=== PATIENT | female | born 1950 | race American Indian/Alaskan Native ===

== ENCOUNTER 2017-09-25 10:06 | Outpatient (CLI) | payer MEDICARE ==
--- NOTE | 2017-09-25 13:19 | Fluoroscopy Report ---
MODIFIED BARIUM SWALLOW INDICATION: Food in esophagus causing compression of trachea. COMPARISON: None similar. FINDINGS: Fluoroscopy with video provided by radiologist for speech therapist to assess the swallowing mechanism. Food items of various consistencies given. IMPRESSION: Successful modified barium swallow. Please refer to detailed report from speech pathologist. Thank you for the opportunity to participate in this patient's care.
== END 2017-09-25 10:07 | disposition home or self-care (01) ==
LOC: FLUORO 10:06
PROVIDERS: ATTEND Internal Medicine
DX: T18.120A Food in esophagus causing compression of trachea, initial encounter (principal); X58.XXXA Exposure to other specified factors, initial encounter; Y93.89 Activity, other specified; Y92.89 Other specified places as the place of occurrence of the external cause; Y99.8 Other external cause status
CPT/HCPCS: 74230

== ENCOUNTER 2017-09-25 11:28 | Outpatient (CLI) | payer MEDICARE | END 2017-09-25 11:29 | disposition home or self-care (01) | LOC: PT 11:28 | PROVIDERS: ATTEND Internal Medicine | DX: R13.12 Dysphagia, oropharyngeal phase (principal); T18.120A Food in esophagus causing compression of trachea, initial encounter; E11.9 Type 2 diabetes mellitus without complications; I10 Essential (primary) hypertension; F41.9 Anxiety disorder, unspecified; X58.XXXA Exposure to other specified factors, initial encounter; Y93.89 Activity, other specified; Y92.89 Other specified places as the place of occurrence of the external cause; Y99.8 Other external cause status | CPT/HCPCS: 92611; G8996; G8997; G8998 ==

== ENCOUNTER 2017-10-03 20:31 | Inpatient (IN) | payer MEDICAID, MEDICARE ==
[2017-10-03 21:23] LABS: Basophils # (Auto) 0.1 K/mm3 (0.0-0.1); Basophils % (Auto) 0.8 % (0.0-1.8); Eosinophils # (Auto) 0.2 K/mm3 (0.0-0.4); Eosinophils % (Auto) 1.9 % (0.0-4.3); Hematocrit 37.3 % (30.3-42.9); Hemoglobin 12.1 gm/dl (10.1-14.3); Lymphocytes # (Auto) 3.6 K/mm3 (1.2-5.4); Lymphocytes % (Auto) 44.8 % (13.4-35.0); Mean Corpuscular HGB Conc 33 % (30-34); Mean Corpuscular Hemoglobin 30 pg (28-32); Mean Corpuscular Volume 92 fl (79-97); Monocytes # (Auto) 0.4 K/mm3 (0.0-0.8); Monocytes % (Auto) 5.3 % (0.0-7.3); Platelet Count 133 K/mm3 (140-440); Red Blood Count 4.05 M/mm3 (3.65-5.03)
[2017-10-03 21:33] LABS: INR 1.02 (0.87-1.13)
[2017-10-03 21:34] LABS: Partial Thromboplastin Time 27.3 Sec. (24.2-36.6)
[2017-10-03 21:35] LABS: Bacteria,Urine 4+ /HPF (Negative); Bilirubin,Urine NEG (Negative); Blood,Urine NEG (Negative); Color,Urine Amber (Yellow); Mucus,Urine 3+ /HPF; Nitrite,Urine NEG (Negative); Protein,Urine >500 mg/dL (Negative); Urobilinogen,Urine < 2.0 mg/dL (<2.0)
[2017-10-03] MEDS ORDERED: MAGNESIUM SULFATE 2GM/50ML 2 GM/50 ML BAG IV ONE (21:37)
[2017-10-03] MEDS ORDERED: LEVAQUIN 750MG/150ML 750 MG/150 ML BAG IV ONE (21:38)
[2017-10-03 21:44] LABS: Amphetamine Screen,Urine PRESUMPTIVE NEGATIVE; Cannabinoid Screen,Urine PRESUMPTIVE NEGATIVE; Cocaine Screen,Urine PRESUMPTIVE NEGATIVE; Methadone Screen,Urine PRESUMPTIVE NEGATIVE; Opiate Screen,Urine PRESUMPTIVE NEGATIVE
[2017-10-03 21:47] LABS: Albumin 3.5 g/dL (3.9-5); Calcium 9.7 mg/dL (8.4-10.2); Creatine Kinase MB < 1.0 ng/mL (0.0-4.0)
--- NOTE | 2017-10-03 21:47 | Emergency Department Report ---
ED Altered Mental Status HPI - General Chief Complaint: Altered Mental Status Stated Complaint: AMS Time Seen by Provider: 10/03/17 20:36 Source: family, EMS, old records reviewed Mode of arrival: Stretcher Limitations: Altered Mental Status, Physical Limitation - History of Present Illness Initial Comments: 67 year old female with a past medical history of previous CVA with residual right-sided deficits, bed bound, chronic dysphagia and chronic dysarthria secondary to CVA, A. fib, dementia, CHF, diabetes, hypertension, chronic renal insufficiency, and Parkinson's disease presents to the hospital with alteration in mental status as started about 2:30 PM today. Patient's daughter is at the bedside. She states that she was at work all day and her sons reported decrease activity and decreased speaking. At 5 PM patient would not eat when fed by her sons. When daughter arrived home at 6 PM continued alteration in mental status and brought patient to the hospital. In the ED patient is able to communicate her name but doesn't converse as fluently as normal. Patient is able to follow commands and does not report pain. Frequent coughing, vomiting, and drooling noted at the bedside. - Related Data Home Medications Medication Instructions Recorded Confirmed Last Taken Carbidopa/Levodopa 10-100 [Sinemet 1 each PO BID 05/06/13 08/30/17 01/25/15 10/100] Famotidine [Pepcid] 20 mg PO BID 05/06/13 08/30/17 01/25/15 Previous Rx's Medication Instructions Recorded Last Taken Type Aspirin [Aspirin BABY CHEW TAB] 81 mg PO QDAY tab.chew 01/29/15 Unknown Rx Donepezil [Aricept] 5 mg PO QDAY tablet 01/29/15 Unknown Rx ALPRAZolam [ALPRAZolam Odt] 0.5 mg PO BID PRN #60 tab.rapdis 09/06/17 Unknown Rx AtorvaSTATin [Lipitor] 80 mg PO QHS tablet 09/06/17 Unknown Rx Calcitriol [Rocaltrol] 0.25 mcg PO QDAY capsule 09/06/17 Unknown Rx Carvedilol [Coreg] 6.25 mg PO BID tablet 09/06/17 Unknown Rx Gabapentin [Neurontin] 100 mg PO TID #90 capsule 09/06/17 Unknown Rx Insulin Detemir [Levemir] 28 units SUB-Q QHS units 09/06/17 Unknown Rx Losartan [Cozaar] 25 mg PO QDAY tablet 09/06/17 Unknown Rx Sodium Bicarbonate 650 mg PO BID tablet 09/06/17 Unknown Rx hydrALAZINE [Apresoline TAB] 100 mg PO TID tab 09/06/17 Unknown Rx traZODone [Desyrel] 50 mg PO QHS #30 tablet 09/06/17 Unknown Rx Allopurinol [Zyloprim] 100 mg PO QDAY #30 tablet 09/07/17 Unknown Rx Allergies Allergy/AdvReac Type Severity Reaction Status Date / Time Penicillins Allergy Unknown Verified 05/06/13 00:01 ED Review of Systems ROS: Stated complaint: AMS Other details as noted in HPI Comment: Unobtainable due to pts medical conditions ED Past Medical Hx - Past Medical History Previous Medical History?: Yes Hx Hypertension: Yes Hx CVA: Yes Hx Congestive Heart Failure: Yes Hx Diabetes: Yes Hx Renal Disease: Yes Hx Psychiatric Treatment: Yes (dementia) Hx Dementia: Yes Additional medical history: parkinson's - Surgical History Past Surgical History?: Yes Additional Surgical History: bypass heart surg back surg - Social History Smoking Status: Never Smoker Substance Use Type: None, Prescribed - Medications Home Medications: Home Medications Medication Instructions Recorded Confirmed Last Taken Type Carbidopa/Levodopa 10-100 [Sinemet 1 each PO BID 05/06/13 08/30/17 01/25/15 History 10] Famotidine [Pepcid] 20 mg PO BID 05/06/13 08/30/17 01/25/15 History Aspirin [Aspirin BABY CHEW TAB] 81 mg PO QDAY tab.chew 01/29/15 08/30/17 Unknown Rx Donepezil [Aricept] 5 mg PO QDAY tablet 01/29/15 08/30/17 Unknown Rx ALPRAZolam [ALPRAZolam Odt] 0.5 mg PO BID PRN #60 tab.rapdis 09/06/17 Unknown Rx AtorvaSTATin [Lipitor] 80 mg PO QHS tablet 09/06/17 Unknown Rx Calcitriol [Rocaltrol] 0.25 mcg PO QDAY capsule 09/06/17 Unknown Rx Carvedilol [Coreg] 6.25 mg PO BID tablet 09/06/17 Unknown Rx Gabapentin [Neurontin] 100 mg PO TID #90 capsule 09/06/17 Unknown Rx Insulin Detemir [Levemir] 28 units SUB-Q QHS units 09/06/17 Unknown Rx Losartan [Cozaar] 25 mg PO QDAY tablet 09/06/17 Unknown Rx Sodium Bicarbonate 650 mg PO BID tablet 09/06/17 Unknown Rx hydrALAZINE [Apresoline TAB] 100 mg PO TID tab 09/06/17 Unknown Rx traZODone [Desyrel] 50 mg PO QHS #30 tablet 09/06/17 Unknown Rx Allopurinol [Zyloprim] 100 mg PO QDAY #30 tablet 09/07/17 Unknown Rx ED Physical Exam - General Limitations: Altered Mental Status, Physical Limitation - Other Other exam information: General: Limited by depressed mental status Head exam: Atraumatic, normocephalic Eyes exam: Right eye appears 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 (chronic as per patient' s daughter) left eyes extraocular movements intact ENT: Moist mucous membrane Neck exam: Normal inspection Respiratory exam: Clear to auscultation bilateral, no wheezes, rales, crackles Cardiovascular: Normal rate and rhythm Abdomen: Soft, nondistended, and nontender, with normal bowel sounds, no rebound, or guarding Extremity: Normal inspection Back: Normal Inspection Neurologic: Alert to voice, follows commands, no facial droop, 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, left arm strength 4/5, right arm strength 3/5, bilateral week for dorsiflexion equal and unable to lift either leg against gravity Psychiatric: normal affect, normal mood Skin: Warm, dry, intact ED Course Vital Signs 10/03/17 10/03/17 10/03/17 20:38 20:48 21:22 Temperature 99.1 F 99.1 F Pulse Rate 77 77 80 Respiratory 18 18 23 Rate Blood Pressure 156/84 Blood Pressure 156/84 [Left] O2 Sat by Pulse 96 96 96 Oximetry 10/03/17 21:26 Temperature Pulse Rate Respiratory 20 Rate Blood Pressure Blood Pressure [Left] O2 Sat by Pulse 96 Oximetry - Lab Data Result diagrams: 10/03/17 Unknown 10/03/17 Unknown Lab Results 10/03/17 10/03/17 10/03/17 Range/Units 21:22 21:22 Unknown WBC (4.5-11.0) K/mm3 RBC (3.65-5.03) M/mm3 Hgb (10.1-14.3) gm/dl Hct (30.3-42.9) % MCV (79-97) fl MCH (28-32) pg MCHC (30-34) % RDW (13.2-15.2) % Plt Count (140-440) K/mm3 Lymph % (Auto) (13.4-35.0) % Mcculloch % (Auto) (0.0-7.3) % Eos % (Auto) (0.0-4.3) % Baso % (Auto) (0.0-1.8) % Lymph # (1.2-5.4) K/mm3 Mcculloch # (0.0-0.8) K/mm3 Eos # (0.0-0.4) K/mm3 Baso # (0.0-0.1) K/mm3 Seg Neutrophils % (40.0-70.0) % Seg Neutrophils # (1.8-7.7) K/mm3 PT (12.2-14.9) Sec. INR (0.87-1.13) APTT (24.2-36.6) Sec. Sodium (137-145) mmol/L Potassium (3.6-5.0) mmol/L Chloride (98-107) mmol/L Carbon Dioxide (22-30) mmol/L Anion Gap mmol/L BUN (7-17) mg/dL Creatinine (0.7-1.2) mg/dL Estimated GFR ml/min BUN/Creatinine Ratio % Glucose (65-100) mg/dL Calcium (8.4-10.2) mg/dL Magnesium (1.7-2.3) mg/dL Total Bilirubin (0.1-1.2) mg/dL AST (5-40) units/L ALT (7-56) units/L Alkaline Phosphatase (35-129) units/L Total Creatine Kinase (30-135) units/L CK-MB (CK-2) (0.0-4.0) ng/mL CK-MB (CK-2) Rel Index (0-4) Troponin T (0.00-0.029) ng/mL Total Protein (6.3-8.2) g/dL Albumin (3.9-5) g/dL Albumin/Globulin Ratio % Urine Color Prachi (Yellow) Urine Turbidity Clear (Clear) Urine pH 5.0 (5.0-7.0) Ur Specific Petros 1.016 (1.003-1.030) Urine Protein >500 (Negative) mg/dL Urine Glucose (UA) 150 (Negative) mg/dL Urine Ketones Neg (Negative) mg/dL Urine Blood Neg (Negative) Urine Nitrite Neg (Negative) Urine Bilirubin Neg (Negative) Urine Urobilinogen < 2.0 (<2.0) mg/dL Ur Leukocyte Esterase Mod (Negative) Urine WBC (Auto) 65.0 H (0.0-6.0) /HPF Urine RBC (Auto) 40.0 (0.0-6.0) /HPF U Epithel Cells (Auto) 11.0 (0-13.0) /HPF Urine Bacteria (Auto) 4+ (Negative) /HPF Urine Mucus 3+ /HPF Urine Opiates Screen Presumptive negative Urine Methadone Screen Presumptive negative Ur Barbiturates Screen Presumptive negative Ur Phencyclidine Scrn Presumptive negative Ur Amphetamines Screen Presumptive negative U Benzodiazepines Scrn Presumptive positive Urine Cocaine Screen Presumptive negative U Marijuana (THC) Screen Presumptive negative Drugs of Abuse Note Disclamer Plasma/Serum Alcohol < 0.01 (0-0.07) % 10/03/17 10/03/17 10/03/17 Range/Units Unknown Unknown Unknown WBC 8.1 (4.5-11.0) K/mm3 RBC 4.05 (3.65-5.03) M/mm3 Hgb 12.1 (10.1-14.3) gm/dl Hct 37.3 (30.3-42.9) % MCV 92 (79-97) fl MCH 30 (28-32) pg MCHC 33 (30-34) % RDW 15.0 (13.2-15.2) % Plt Count 133 L (140-440) K/mm3 Lymph % (Auto) 44.8 H (13.4-35.0) % Mcculloch % (Auto) 5.3 (0.0-7.3) % Eos % (Auto) 1.9 (0.0-4.3) % Baso % (Auto) 0.8 (0.0-1.8) % Lymph # 3.6 (1.2-5.4) K/mm3 Mcculloch # 0.4 (0.0-0.8) K/mm3 Eos # 0.2 (0.0-0.4) K/mm3 Baso # 0.1 (0.0-0.1) K/mm3 Seg Neutrophils % 47.2 (40.0-70.0) % Seg Neutrophils # 3.8 (1.8-7.7) K/mm3 PT 13.9 (12.2-14.9) Sec. INR 1.02 (0.87-1.13) APTT 27.3 (24.2-36.6) Sec. Sodium 141 (137-145) mmol/L Potassium 3.9 (3.6-5.0) mmol/L Chloride 105.9 (98-107) mmol/L Carbon Dioxide 20 L (22-30) mmol/L Anion Gap 19 mmol/L BUN 21 H (7-17) mg/dL Creatinine 1.7 H (0.7-1.2) mg/dL Estimated GFR 36 ml/min BUN/Creatinine Ratio 12 % Glucose 286 H (65-100) mg/dL Calcium 9.7 (8.4-10.2) mg/dL Magnesium (1.7-2.3) mg/dL Total Bilirubin 0.50 (0.1-1.2) mg/dL AST 28 (5-40) units/L ALT 18 (7-56) units/L Alkaline Phosphatase 250 H (35-129) units/L Total Creatine Kinase (30-135) units/L CK-MB (CK-2) (0.0-4.0) ng/mL CK-MB (CK-2) Rel Index (0-4) Troponin T (0.00-0.029) ng/mL Total Protein 7.3 (6.3-8.2) g/dL Albumin 3.5 L (3.9-5) g/dL Albumin/Globulin Ratio 0.9 % Urine Color (Yellow) Urine Turbidity (Clear) Urine pH (5.0-7.0) Ur Specific Petros (1.003-1.030) Urine Protein (Negative) mg/dL Urine Glucose (UA) (Negative) mg/dL Urine Ketones (Negative) mg/dL Urine Blood (Negative) Urine Nitrite (Negative) Urine Bilirubin (Negative) Urine Urobilinogen (<2.0) mg/dL Ur Leukocyte Esterase (Negative) Urine WBC (Auto) (0.0-6.0) /HPF Urine RBC (Auto) (0.0-6.0) /HPF U Epithel Cells (Auto) (0-13.0) /HPF Urine Bacteria (Auto) (Negative) /HPF Urine Mucus /HPF Urine Opiates Screen Urine Methadone Screen Ur Barbiturates Screen Ur Phencyclidine Scrn Ur Amphetamines Screen U Benzodiazepines Scrn Urine Cocaine Screen U Marijuana (THC) Screen Drugs of Abuse Note Plasma/Serum Alcohol (0-0.07) % 10/03/17 10/03/17 Range/Units Unknown Unknown WBC (4.5-11.0) K/mm3 RBC (3.65-5.03) M/mm3 Hgb (10.1-14.3) gm/dl Hct (30.3-42.9) % MCV (79-97) fl MCH (28-32) pg MCHC (30-34) % RDW (13.2-15.2) % Plt Count (140-440) K/mm3 Lymph % (Auto) (13.4-35.0) % Mcculloch % (Auto) (0.0-7.3) % Eos % (Auto) (0.0-4.3) % Baso % (Auto) (0.0-1.8) % Lymph # (1.2-5.4) K/mm3 Mcculloch # (0.0-0.8) K/mm3 Eos # (0.0-0.4) K/mm3 Baso # (0.0-0.1) K/mm3 Seg Neutrophils % (40.0-70.0) % Seg Neutrophils # (1.8-7.7) K/mm3 PT (12.2-14.9) Sec. INR (0.87-1.13) APTT (24.2-36.6) Sec. Sodium (137-145) mmol/L Potassium (3.6-5.0) mmol/L Chloride (98-107) mmol/L Carbon Dioxide (22-30) mmol/L Anion Gap mmol/L BUN (7-17) mg/dL Creatinine (0.7-1.2) mg/dL Estimated GFR ml/min BUN/Creatinine Ratio % Glucose (65-100) mg/dL Calcium (8.4-10.2) mg/dL Magnesium 1.40 L (1.7-2.3) mg/dL Total Bilirubin (0.1-1.2) mg/dL AST (5-40) units/L ALT (7-56) units/L Alkaline Phosphatase (35-129) units/L Total Creatine Kinase 68 (30-135) units/L CK-MB (CK-2) < 1.0 (0.0-4.0) ng/mL CK-MB (CK-2) Rel Index 1.4 (0-4) Troponin T 0.021 (0.00-0.029) ng/mL Total Protein (6.3-8.2) g/dL Albumin (3.9-5) g/dL Albumin/Globulin Ratio % Urine Color (Yellow) Urine Turbidity (Clear) Urine pH (5.0-7.0) Ur Specific Petros (1.003-1.030) Urine Protein (Negative) mg/dL Urine Glucose (UA) (Negative) mg/dL Urine Ketones (Negative) mg/dL Urine Blood (Negative) Urine Nitrite (Negative) Urine Bilirubin (Negative) Urine Urobilinogen (<2.0) mg/dL Ur Leukocyte Esterase (Negative) Urine WBC (Auto) (0.0-6.0) /HPF Urine RBC (Auto) (0.0-6.0) /HPF U Epithel Cells (Auto) (0-13.0) /HPF Urine Bacteria (Auto) (Negative) /HPF Urine Mucus /HPF Urine Opiates Screen Urine Methadone Screen Ur Barbiturates Screen Ur Phencyclidine Scrn Ur Amphetamines Screen U Benzodiazepines Scrn Urine Cocaine Screen U Marijuana (THC) Screen Drugs of Abuse Note Plasma/Serum Alcohol (0-0.07) % - EKG Data -: EKG Interpreted by [place] EKG shows normal: sinus rhythm, axis (97), intervals (qtc 501), QRS complexes ( 94), ST-T waves (no loreto/t inv, LVH) Rate: normal (93) When compared to previous EKG there are: changes noted (compared to 09/08/17 ( afib)) - Radiology Data Radiology results: report reviewed Chest x-ray: Left lung base atelectasis or infiltrate and possible left pleural effusion versus pleural thickening. ct head: naf (see report) - Medical Decision Making Altered mental status Likely secondary to UTI Levaquin initiated CT head: naf Frequent vomiting with worsening dysphagia NG tube placed to prevent aspiration Chest x-ray shows left lung base atelectasis versus a bit shaky with possible left pleural effusion versus pleural thickening Levaquin initiated Renal sufficiency stable Hypomagnesemia IV magnesium initiated - Differential Diagnosis UTI, CVA, aspiration, encephalopathy Critical Care Time: No Critical care attestation.: If time is entered above; I have spent that time in minutes in the direct care of this critically ill patient, excluding procedure time. ED Disposition Clinical Impression: Altered mental state, UTI (urinary tract infection), Vomiting, Dysphagia, Chronic renal insufficiency, History of CVA with residual deficit, Hypomagnesemia, Pulmonary infiltrates on CXR, Diabetes Disposition: DC-09 OP ADMIT IP TO THIS HOSP Is pt being admited?: Yes Condition: Stable Time of Disposition: 23:15 (Dr Ward/hosp)
[2017-10-03 21:59] LABS: Benzodiazepines Screen,Urine PRESUMPTIVE POSITIVE
--- NOTE | 2017-10-03 22:42 | XRay Report ---
FINAL REPORT PROCEDURE: XR CHEST 1V AP TECHNIQUE: Chest radiograph anteroposterior view. CPT 93849 HISTORY: vomiting, possible aspiration; NG TUBE PLACEMENT COMPARISON: No prior studies are available for comparison. FINDINGS: Heart: Mildly prominent contour Mediastinum/Vessels: Normal. Lungs/Pleural space: There is patchy left lower lobe atelectasis or infiltrate. Possible left pleural effusion. Bony thorax: No acute osseous abnormality. Life support devices: Nasogastric tube tip is in the proximal stomach. IMPRESSION: Left lung base atelectasis or infiltrate and possible left pleural effusion versus pleural thickening.
--- NOTE | 2017-10-03 23:02 | Cat Scan Report ---
FINAL REPORT PROCEDURE: CT HEAD/BRAIN WO CON TECHNIQUE: Computerized tomography of the head was performed without contrast material. HISTORY: ams COMPARISON: 08/30/2017 FINDINGS: There are diffuse involutional changes, with prominence of the ventricles and the sulci. There is bilateral white matter low attenuation, compatible with chronic microvascular ischemic changes. The intracranial arteries are symmetric in density. Calvarium is intact. Visualized paranasal sinuses and mastoids are aerated. IMPRESSION: No CT evidence of acute abnormality. Chronic involutional changes and chronic ischemic changes are present.
[2017-10-03] MEDS ORDERED: NORMODYNE IV ONE (23:22)
[2017-10-03] MEDS ORDERED: APRESOLINE IV ONE (23:56)
--- NOTE | 2017-10-03 23:57 | History and Physical Report ---
History of Present Illness Date of examination: 10/03/17 History of present illness: CC 7-year-old woman with a history of hypertension, diabetes, coronary artery disease, hypothyroidism, CHF, Parkinson's dementia, CVA with dysphagia was brought to the emergency room for altered mental status, family and patient is unable to give a history, review of systems is unobtainable, old records reviewed. Blood pressure has been elevated, unresponsive to IV medications PAST MEDICAL HISTORY:hypertension, diabetes, coronary artery disease, hypothyroidism, CHF, Parkinson's dementia, CVA with dysphagia PAST SURGICAL HISTORY: CABG FAMILY HISTORY: Hypertension SOCIAL HISTORY: No tobacco, alcohol, drugs Medications and Allergies Allergies Allergy/AdvReac Type Severity Reaction Status Date / Time Penicillins Allergy Unknown Verified 05/06/13 00:01 Home Medications Medication Instructions Recorded Confirmed Last Taken Type Carbidopa/Levodopa 10-100 [Sinemet 1 each PO BID 05/06/13 08/30/17 01/25/15 History 10100] Famotidine [Pepcid] 20 mg PO BID 05/06/13 08/30/17 01/25/15 History Aspirin [Aspirin BABY CHEW TAB] 81 mg PO QDAY tab.chew 01/29/15 08/30/17 Unknown Rx Donepezil [Aricept] 5 mg PO QDAY tablet 01/29/15 08/30/17 Unknown Rx ALPRAZolam [ALPRAZolam Odt] 0.5 mg PO BID PRN #60 tab.rapdis 09/06/17 Unknown Rx AtorvaSTATin [Lipitor] 80 mg PO QHS tablet 09/06/17 Unknown Rx Calcitriol [Rocaltrol] 0.25 mcg PO QDAY capsule 09/06/17 Unknown Rx Carvedilol [Coreg] 6.25 mg PO BID tablet 09/06/17 Unknown Rx Gabapentin [Neurontin] 100 mg PO TID #90 capsule 09/06/17 Unknown Rx Insulin Detemir [Levemir] 28 units SUB-Q QHS units 09/06/17 Unknown Rx Losartan [Cozaar] 25 mg PO QDAY tablet 09/06/17 Unknown Rx Sodium Bicarbonate 650 mg PO BID tablet 09/06/17 Unknown Rx hydrALAZINE [Apresoline TAB] 100 mg PO TID tab 09/06/17 Unknown Rx traZODone [Desyrel] 50 mg PO QHS #30 tablet 09/06/17 Unknown Rx Allopurinol [Zyloprim] 100 mg PO QDAY #30 tablet 09/07/17 Unknown Rx Active Meds: Active Medications Hydralazine HCl (Apresoline) 5 mg IV ONCE ONE Stop: 10/03/17 23:57 Exam - Physical Exam Narrative exam: Gen. appearance: Patient lying in bed in no acute distress HEENT: Normocephalic/atraumatic, pupils equal round reactive to light, extra occular movement intact, no scleral icterus, no JVD or thyromegaly or nodule, neck is supple, mucous membrane moist, no erythema or exudate Heart: S1-S2, regular rate and rhythm Lungs: Crackles bilateral breathing comfortable Abdomen: Positive bowel sounds, nontender, nondistended, no organomegaly Extremities: No edema, cyanosis, clubbing Neuro:: Difficult to assess Skin: No rash, nodules, warm dry - Constitutional Vitals: Temp Pulse Resp BP Pulse Ox 99.1 F 73 20 200/74 96 10/03/17 20:48 10/03/17 23:35 10/03/17 21:26 10/03/17 23:35 10/03/17 21:26 Results - Labs CBC & Chem 7: 10/03/17 Unknown 10/03/17 Unknown Labs: Abnormal lab results 10/03/17 10/03/17 10/03/17 Range/Units 21:22 Unknown Unknown Plt Count 133 L (140-440) K/mm3 Lymph % (Auto) 44.8 H (13.4-35.0) % Carbon Dioxide 20 L (22-30) mmol/L BUN 21 H (7-17) mg/dL Creatinine 1.7 H (0.7-1.2) mg/dL Glucose 286 H (65-100) mg/dL Magnesium (1.7-2.3) mg/dL Alkaline Phosphatase 250 H (35-129) units/L Albumin 3.5 L (3.9-5) g/dL Urine WBC (Auto) 65.0 H (0.0-6.0) /HPF 10/03/17 Range/Units Unknown Plt Count (140-440) K/mm3 Lymph % (Auto) (13.4-35.0) % Carbon Dioxide (22-30) mmol/L BUN (7-17) mg/dL Creatinine (0.7-1.2) mg/dL Glucose (65-100) mg/dL Magnesium 1.40 L (1.7-2.3) mg/dL Alkaline Phosphatase (35-129) units/L Albumin (3.9-5) g/dL Urine WBC (Auto) (0.0-6.0) /HPF - Imaging and Cardiology EKG: image reviewed Chest x-ray: image reviewed CT Scan - head: report reviewed Assessment and Plan Assessment Community-acquired pneumonia UTI Hypertension malignant Diabetes type 2 Coronary artery disease Hypothyroidism Parkinson's dementia Thrombocytopenia Plan Admit medicine Start IV Levaquin, follow cultures, start Cardene drip Consult critical care, check fingersticks and initiate insulin sliding scale Continue appropriate outpatient medications DVT prophylaxis
[2017-10-04] MEDS ORDERED: LEVAQUIN 750MG/150ML 750 MG/150 ML BAG IV ONE (00:34)
[2017-10-04] MEDS ORDERED: APRESOLINE IV ONE (00:41)
[2017-10-04] MEDS ORDERED: APRESOLINE ONE (00:42)
[2017-10-04] MEDS ORDERED: CARDENE 50 MG in NACL 0.9% 250ML 230 ML IV SCH (03:00)
[2017-10-04] MEDS ORDERED: ALPRAZOLAM 0.5 MG PO PRN (04:07)
[2017-10-04] MEDS ORDERED: MILK OF MAGNESIA PO PRN (04:14)
[2017-10-04] MEDS ORDERED: DULCOLAX PR PRN (04:14)
[2017-10-04] MEDS ORDERED: ZOFRAN IV PRN (04:14)
[2017-10-04] MEDS ORDERED: D50W (25GM) Syringe IV PRN (04:15)
[2017-10-04] MEDS: ARICEPT PO SCH (09:30)
[2017-10-04] MEDS: LOVENOX SUB-Q SCH (09:30)
[2017-10-04] MEDS: BABY ASPIRIN PO SCH (09:30)
[2017-10-04] MEDS: ZYLOPRIM PO SCH (09:30)
[2017-10-04] MEDS: NEURONTIN PO SCH ×3 (09:31→20:57)
[2017-10-04] MEDS: SODIUM BICARBONATE PO SCH ×2 (09:31→22:54)
[2017-10-04] MEDS: PEPCID PO SCH (09:32)
[2017-10-04] MEDS: NOVOLOG SUB-Q SCH ×4 (09:32→23:47)
[2017-10-04] MEDS ORDERED: PEPCID PO SCH (10:00)
[2017-10-04] MEDS: SINEMET PO SCH ×2 (11:15→22:54)
[2017-10-04] MEDS: ROCALTROL PO SCH (11:15)
[2017-10-04] MEDS ORDERED: COREG PO SCH (12:00)
--- NOTE | 2017-10-04 12:21 | Consultation ---
History of Present Illness Consult date: 10/04/17 History of present illness: 67 year old female with a past medical history of previous CVA with residual right-sided deficits, bed bound, chronic dysphagia and chronic dysarthria secondary to CVA, A. fib, dementia, CHF, diabetes, hypertension, chronic renal insufficiency, and Parkinson's disease presents to the hospital with alteration in mental status as started about 2:30 PM today. Patient's daughter is at the bedside. She states that she was at work all day and her sons reported decrease activity and decreased speaking. At 5 PM patient would not eat when fed by her sons. When daughter arrived home at 6 PM continued alteration in mental status and brought patient to the hospital. In the ED patient is able to communicate her name but doesn't converse as fluently as normal. Patient is able to follow commands and does not report pain. PAST MEDICAL HISTORY:hypertension, diabetes, coronary artery disease, hypothyroidism, CHF, Parkinson's dementia, CVA with dysphagia PAST SURGICAL HISTORY: CABG FAMILY HISTORY: Hypertension SOCIAL HISTORY: No tobacco, alcohol, drugs Medications and Allergies Allergies Allergy/AdvReac Type Severity Reaction Status Date / Time Penicillins Allergy Unknown Verified 05/06/13 00:01 Home Medications Medication Instructions Recorded Confirmed Last Taken Type Carbidopa/Levodopa 10-100 [Sinemet 1 each PO BID 05/06/13 10/04/17 01/25/15 History 10] Famotidine [Pepcid] 20 mg PO BID 05/06/13 10/04/17 01/25/15 History Aspirin [Aspirin BABY CHEW TAB] 81 mg PO QDAY tab.chew 01/29/15 10/04/17 Unknown Rx Donepezil [Aricept] 5 mg PO QDAY tablet 01/29/15 10/04/17 Unknown Rx ALPRAZolam [ALPRAZolam Odt] 0.5 mg PO BID PRN #60 tab.rapdis 09/06/17 10/04/17 Unknown Rx AtorvaSTATin [Lipitor] 80 mg PO QHS tablet 09/06/17 10/04/17 Unknown Rx Calcitriol [Rocaltrol] 0.25 mcg PO QDAY capsule 09/06/17 10/04/17 Unknown Rx Carvedilol [Coreg] 6.25 mg PO BID tablet 09/06/17 10/04/17 Unknown Rx Gabapentin [Neurontin] 100 mg PO TID #90 capsule 09/06/17 10/04/17 Unknown Rx Insulin Detemir [Levemir] 28 units SUB-Q QHS units 09/06/17 10/04/17 Unknown Rx Losartan [Cozaar] 25 mg PO QDAY tablet 09/06/17 10/04/17 Unknown Rx Sodium Bicarbonate 650 mg PO BID tablet 09/06/17 10/04/17 Unknown Rx hydrALAZINE [Apresoline TAB] 100 mg PO TID tab 09/06/17 10/04/17 Unknown Rx traZODone [Desyrel] 50 mg PO QHS #30 tablet 09/06/17 10/04/17 Unknown Rx Allopurinol [Zyloprim] 100 mg PO QDAY #30 tablet 09/07/17 10/04/17 Unknown Rx Active Meds: Active Medications Acetaminophen (Tylenol) 650 mg PO Q4H PRN PRN Reason: Pain MILD(1-3)/Fever >100.5/PEREZ Allopurinol (Zyloprim) 100 mg PO QDAY [facility] Last Admin: 10/04/17 09:30 Dose: 100 mg Alprazolam (Xanax) 0.5 mg PO BID PRN PRN Reason: Agitation Aspirin (Baby Aspirin) 81 mg PO QDAY [facility] Last Admin: 10/04/17 09:30 Dose: 81 mg Atorvastatin Calcium (Lipitor) 80 mg PO QHS [facility] Bisacodyl (Dulcolax) 10 mg [place] QDAY PRN PRN Reason: Constipation unrelieved by MOM Calcitriol (Rocaltrol) 0.25 mcg PO QDAY [facility] Carbidopa/Levodopa (Sinemet) 1 each PO BID [facility] Carvedilol (Coreg) 6.25 mg PO BID [facility] Dextrose (D50w (25gm) Syringe) 50 ml IV PRN PRN PRN Reason: Hypoglycemia Donepezil HCl (Aricept) 5 mg PO QDAY [facility] Last Admin: 10/04/17 09:30 Dose: 5 mg Enoxaparin Sodium (Lovenox) 30 mg SUB-Q QDAY [facility] Last Admin: 10/04/17 09:30 Dose: 30 mg Famotidine (Pepcid) 20 mg PO DAILY [facility] Last Admin: 10/04/17 09:32 Dose: 20 mg Gabapentin (Neurontin) 100 mg PO TID [facility] Last Admin: 10/04/17 09:31 Dose: 100 mg Hydralazine HCl (Apresoline) 100 mg PO TID [facility] Nicardipine HCl 50 mg/ Sodium (Chloride) 250 mls @ 25 mls/hr IV TITR [facility]; 5 MG/ HR PRN Reason: Protocol Last Titration: 10/04/17 04:21 Dose: 2.5 mg/hr, 12.5 mls/hr Insulin Aspart (Novolog) 0 units SUB-Q ACHS [facility] PRN Reason: Protocol Last Admin: 10/04/17 09:32 Dose: 3 units Losartan Potassium (Cozaar) 25 mg PO QDAY [facility] Magnesium Hydroxide (Milk Of Magnesia) 30 ml PO Q4H PRN PRN Reason: Constipation Ondansetron HCl (Zofran) 4 mg IV Q8H PRN PRN Reason: N/V unrelieved by Reglan Sodium Bicarbonate (Sodium Bicarbonate) 650 mg PO BID [facility] Last Admin: 10/04/17 09:31 Dose: 650 mg Physical Examination Vital signs: Vital Signs Pulse Resp 84 22 10/03/17 20:28 10/03/17 20:28 Results - Laboratory Findings CBC and BMP: 10/03/17 Unknown 10/03/17 Unknown PT/INR, D-dimer PT 13.9 Sec. (12.2-14.9) 10/03/17 Unknown INR 1.02 (0.87-1.13) 10/03/17 Unknown Abnormal lab findings: Abnormal Labs 10/03/17 10/03/17 10/03/17 20:37 21:22 Unknown Plt Count 133 L Lymph % (Auto) 44.8 H Carbon Dioxide BUN Creatinine Glucose POC Glucose 256 H Magnesium Alkaline Phosphatase Albumin Urine WBC (Auto) 65.0 H 10/03/17 10/03/17 10/04/17 Unknown Unknown 05:41 Plt Count Lymph % (Auto) Carbon Dioxide 20 L BUN 21 H Creatinine 1.7 H Glucose 286 H POC Glucose 240 H Magnesium 1.40 L Alkaline Phosphatase 250 H Albumin 3.5 L Urine WBC (Auto)
[2017-10-04] MEDS: COZAAR PO SCH (12:28)
--- NOTE | 2017-10-04 13:19 | Progress Note ---
Assessment and Plan Assessment and plan: Sepsis. Cont. IV abx. F/U blood cx, urine cx and trend lactate levels. Etiology secondary to LLL Pnumonia and UTI UTI. Cont abx and f/u cx LLL CAP. Cont. Abx and f/u serial CXR Accel HTN. Cont antihypertensive meds. Wean Cardene drip Diabetes type 2. Cont. Accuchecks and SSRI Coronary artery disease. Hypothyroidism. Check TSH. Cont Synthroid Parkinson's dementia. Cont. Sinemet and aricept Thrombocytopenia. F/U CBC History Interval history: Somnolent. Hospitalist Physical - Constitutional Vitals: Temp Pulse Resp BP Pulse Ox 98.7 F 85 17 159/67 97 10/04/17 08:00 10/04/17 12:32 10/04/17 08:41 10/04/17 12:32 10/04/17 08:41 General appearance: Present: no acute distress, well-nourished - EENT Eyes: Present: PERRL, EOM intact ENT: hearing intact, clear oral mucosa, dentition normal - Neck Neck: Present: supple, normal ROM - Respiratory Respiratory effort: normal Respiratory: bilateral: CTA - Cardiovascular Rhythm: regular Heart Sounds: Present: S1 & S2. Absent: gallop, rub - Extremities Extremities: no ischemia, No edema, Full ROM - Abdominal General gastrointestinal: soft, non-tender, non-distended, normal bowel sounds - Integumentary Integumentary: Present: clear, warm, dry - Neurologic Neurologic: CNII-XII intact, moves all extremities Results - Labs CBC & Chem 7: 10/03/17 Unknown 10/03/17 Unknown Labs: Laboratory Last Values WBC 8.1 K/mm3 (4.5-11.0) 10/03/17 Unknown RBC 4.05 M/mm3 (3.65-5.03) 10/03/17 Unknown Hgb 12.1 gm/dl (10.1-14.3) 10/03/17 Unknown Hct 37.3 % (30.3-42.9) 10/03/17 Unknown MCV 92 fl (79-97) 10/03/17 Unknown MCH 30 pg (28-32) 10/03/17 Unknown MCHC 33 % (30-34) 10/03/17 Unknown RDW 15.0 % (13.2-15.2) 10/03/17 Unknown Plt Count 133 K/mm3 (140-440) L 10/03/17 Unknown Lymph % (Auto) 44.8 % (13.4-35.0) H 10/03/17 Unknown [place] % (Auto) 5.3 % (0.0-7.3) 10/03/17 Unknown Eos % (Auto) 1.9 % (0.0-4.3) 10/03/17 Unknown Baso % (Auto) 0.8 % (0.0-1.8) 10/03/17 Unknown Lymph # 3.6 K/mm3 (1.2-5.4) 10/03/17 Unknown [place] # 0.4 K/mm3 (0.0-0.8) 10/03/17 Unknown Eos # 0.2 K/mm3 (0.0-0.4) 10/03/17 Unknown Baso # 0.1 K/mm3 (0.0-0.1) 10/03/17 Unknown Seg Neutrophils % 47.2 % (40.0-70.0) 10/03/17 Unknown Seg Neutrophils # 3.8 K/mm3 (1.8-7.7) 10/03/17 Unknown PT 13.9 Sec. (12.2-14.9) 10/03/17 Unknown INR 1.02 (0.87-1.13) 10/03/17 Unknown APTT 27.3 Sec. (24.2-36.6) 10/03/17 Unknown Sodium 141 mmol/L (137-145) 10/03/17 Unknown Potassium 3.9 mmol/L (3.6-5.0) 10/03/17 Unknown Chloride 105.9 mmol/L (98-107) 10/03/17 Unknown Carbon Dioxide 20 mmol/L (22-30) L 10/03/17 Unknown Anion Gap 19 mmol/L 10/03/17 Unknown BUN 21 mg/dL (7-17) H 10/03/17 Unknown Creatinine 1.7 mg/dL (0.7-1.2) H 10/03/17 Unknown Estimated GFR 36 ml/min 10/03/17 Unknown BUN/Creatinine Ratio 12 % 10/03/17 Unknown Glucose 286 mg/dL (65-100) H 10/03/17 Unknown POC Glucose 240 (70-105) H 10/04/17 05:41 Calcium 9.7 mg/dL (8.4-10.2) 10/03/17 Unknown Magnesium 1.40 mg/dL (1.7-2.3) L 10/03/17 Unknown Total Bilirubin 0.50 mg/dL (0.1-1.2) 10/03/17 Unknown AST 28 units/L (5-40) 10/03/17 Unknown ALT 18 units/L (7-56) 10/03/17 Unknown Alkaline Phosphatase 250 units/L (35-129) H 10/03/17 Unknown Total Creatine Kinase 68 units/L (30-135) 10/03/17 Unknown CK-MB (CK-2) < 1.0 ng/mL (0.0-4.0) 10/03/17 Unknown CK-MB (CK-2) Rel Index 1.4 (0-4) 10/03/17 Unknown Troponin T 0.021 ng/mL (0.00-0.029) 10/03/17 Unknown Total Protein 7.3 g/dL (6.3-8.2) 10/03/17 Unknown Albumin 3.5 g/dL (3.9-5) L 10/03/17 Unknown Albumin/Globulin Ratio 0.9 % 10/03/17 Unknown Urine Color [place] (Yellow) 10/03/17 21:22 Urine Turbidity Clear (Clear) 10/03/17 21:22 Urine pH 5.0 (5.0-7.0) 10/03/17 21:22 Ur Specific [place] 1.016 (1.003-1.030) 10/03/17 21:22 Urine Protein >500 mg/dL (Negative) 10/03/17 21:22 Urine Glucose (UA) 150 mg/dL (Negative) 10/03/17 21:22 Urine Ketones Neg mg/dL (Negative) 10/03/17 21:22 Urine Blood Neg (Negative) 10/03/17 21:22 Urine Nitrite Neg (Negative) 10/03/17 21:22 Urine Bilirubin Neg (Negative) 10/03/17 21:22 Urine Urobilinogen < 2.0 mg/dL (<2.0) 10/03/17 21:22 Ur Leukocyte Esterase Mod (Negative) 10/03/17 21:22 Urine WBC (Auto) 65.0 /HPF (0.0-6.0) H 10/03/17 21:22 Urine RBC (Auto) 40.0 /HPF (0.0-6.0) 10/03/17 21:22 U Epithel Cells (Auto) 11.0 /HPF (0-13.0) 10/03/17 21:22 Urine Bacteria (Auto) 4+ /HPF (Negative) 10/03/17 21:22 Urine Mucus 3+ /HPF 10/03/17 21:22 Urine Opiates Screen Presumptive negative 10/03/17 21:22 Urine Methadone Screen Presumptive negative 10/03/17 21:22 Ur Barbiturates Screen Presumptive negative 10/03/17 21:22 Ur Phencyclidine Scrn Presumptive negative 10/03/17 21:22 Ur Amphetamines Screen Presumptive negative 10/03/17 21:22 U Benzodiazepines Scrn Presumptive positive 10/03/17 21:22 Urine Cocaine Screen Presumptive negative 10/03/17 21:22 U Marijuana (THC) Screen Presumptive negative 10/03/17 21:22 Drugs of Abuse Note Disclamer 10/03/17 21:22 Plasma/Serum Alcohol < 0.01 % (0-0.07) 10/03/17 Unknown
[2017-10-04] MEDS: APRESOLINE PO SCH ×4 (14:10→20:57)
--- NOTE | 2017-10-04 16:38 | Cat Scan Report ---
FINAL REPORT EXAM: CT CHEST WO CON HISTORY: pneumonia, pleural effusion TECHNIQUE: CT examination of the chest without IV contrast PRIORS: One-view chest 10/03/2017 FINDINGS: Slight cardiomegaly without pericardial effusion. Normal caliber thoracic aorta with slight to moderate calcified plaque. Normal-appearing esophagus. Gastric tube in place with distal tip in proximal stomach. No evidence of hilar mass or mediastinal adenopathy. Calcified gallstones in gallbladder lumen. No visible other biliary pathology. Right renal cyst. No acute fracture. Degenerative change in the regional skeleton. Nonspecific density in the central canal region of L1 and visible portion of L2. This may reflect calcification. Correlate for prior myelogram. Slight pleural thickening in the posterior inferior left lung may be scar or small effusion. No right pleural effusion. No pneumothorax. Slight linear and patchy opacity in the left lung base posteriorly may be scar, mild edema, atelectasis, or small focus of pneumonia. Right lung relatively clear. No definite lung mass or pulmonary nodule. IMPRESSION: Left posterior inferior pleural thickening may be scar and/or small effusion Scattered linear and patchy opacity in the left lung base posteriorly may be scar or atelectasis. Differential includes mild edema or small focus of pneumonia Slight cardiomegaly Gastric tube distal tip in proximal stomach Cholelithiasis Central canal nonspecific density may be calcification at the L1 and L2 level. Differential includes myelographic contrast
[2017-10-04] MEDS: COREG PO SCH (22:54)
[2017-10-04] MEDS: DESYREL PO SCH (22:54)
[2017-10-04] MEDS: LEVEMIR SUB-Q SCH (23:46)
[2017-10-05] MEDS: XANAX PO PRN (04:11)
[2017-10-05] MEDS: TYLENOL PO PRN (04:11)
[2017-10-05 05:43] LABS: Basophils # (Auto) 0.1 K/mm3 (0.0-0.1); Basophils % (Auto) 1.2 % (0.0-1.8); Eosinophils # (Auto) 0.1 K/mm3 (0.0-0.4); Eosinophils % (Auto) 0.8 % (0.0-4.3); Hematocrit 35.1 % (30.3-42.9); Hemoglobin 11.6 gm/dl (10.1-14.3); Lymphocytes # (Auto) 2.6 K/mm3 (1.2-5.4); Lymphocytes % (Auto) 36.3 % (13.4-35.0); Mean Corpuscular HGB Conc 33 % (30-34); Mean Corpuscular Hemoglobin 30 pg (28-32); Mean Corpuscular Volume 92 fl (79-97); Monocytes # (Auto) 0.5 K/mm3 (0.0-0.8); Monocytes % (Auto) 6.6 % (0.0-7.3); Platelet Count 122 K/mm3 (140-440); Red Blood Count 3.84 M/mm3 (3.65-5.03); Red Cell Distribution Width 15.3 % (13.2-15.2)
[2017-10-05 05:57] LABS: Calcium 9.2 mg/dL (8.4-10.2)
[2017-10-05] MEDS ORDERED: COZAAR PO SCH (10:00)
[2017-10-05] MEDS: SODIUM BICARBONATE PO SCH ×2 (10:37→21:32)
[2017-10-05] MEDS: APRESOLINE PO SCH ×3 (10:37→20:12)
[2017-10-05] MEDS: NEURONTIN PO SCH ×3 (10:37→20:12)
[2017-10-05] MEDS: LOVENOX SUB-Q SCH (10:38)
[2017-10-05] MEDS: ARICEPT PO SCH (10:38)
[2017-10-05] MEDS: PEPCID PO SCH (10:38)
[2017-10-05] MEDS: NOVOLOG SUB-Q SCH ×4 (10:39→22:24)
[2017-10-05] MEDS: ZYLOPRIM PO SCH (10:39)
[2017-10-05] MEDS: ROCALTROL PO SCH (10:39)
[2017-10-05] MEDS: BABY ASPIRIN PO SCH (10:39)
[2017-10-05] MEDS: COREG PO SCH ×2 (10:40→21:32)
[2017-10-05] MEDS: COZAAR PO SCH (10:40)
[2017-10-05] MEDS: SINEMET PO SCH ×2 (10:50→21:32)
[2017-10-05] MEDS ORDERED: PNEUMOVAX 23 IM ONE (12:00)
--- NOTE | 2017-10-05 12:57 | Progress Note ---
<JOSÉ MIGUEL MORGAN - Last Filed: 10/05/17 12:48> Assessment and Plan Assessment and plan: Sepsis. Improving , Cont. IV abx. Follow urine cx and trend lactate levels. Etiology secondary to LLL Pnumonia and UTI UTI Cont abx and f/u cx LLL CAP. Cont. Abx and f/u serial CXR Accel HTN. Cont antihypertensive meds. Cardene drip dc'd Diabetes type 2. Cont. ADA diet, Accuchecks and SSI Coronary artery disease. Hypothyroidism. Cont Synthroid Parkinson's dementia Cont. Sinemet and aricept Thrombocytopenia F/U CBC DVT prophylaxis Lovenox History Interval history: Patient seen and examined. No new issues overnight. Labs and nursing notes reviewed. Hospitalist Physical - Constitutional Vitals: Temp Pulse Resp BP Pulse Ox 99.0 F 81 20 171/78 95 10/05/17 08:17 10/05/17 10:40 10/05/17 10:00 10/05/17 10:40 10/05/17 10:00 General appearance: Present: no acute distress, well-nourished - EENT Eyes: Present: PERRL, EOM intact ENT: hearing intact, clear oral mucosa - Neck Neck: Present: supple, normal ROM - Respiratory Respiratory effort: normal Respiratory: bilateral: CTA - Cardiovascular Rhythm: regular Heart Sounds: Present: S1 & S2 - Extremities Extremities: no ischemia, No edema - Abdominal General gastrointestinal: soft, non-tender - Integumentary Integumentary: Present: clear, warm, dry - Psychiatric Psychiatric: appropriate mood/affect, cooperative - Neurologic Neurologic: CNII-XII intact, moves all extremities - Allied Health Allied health notes reviewed: nursing Results - Labs CBC & Chem 7: 10/05/17 05:18 10/05/17 05:18 Labs: Laboratory Last Values WBC 7.1 K/mm3 (4.5-11.0) 10/05/17 05:18 RBC 3.84 M/mm3 (3.65-5.03) 10/05/17 05:18 Hgb 11.6 gm/dl (10.1-14.3) 10/05/17 05:18 Hct 35.1 % (30.3-42.9) 10/05/17 05:18 MCV 92 fl (79-97) 10/05/17 05:18 MCH 30 pg (28-32) 10/05/17 05:18 MCHC 33 % (30-34) 10/05/17 05:18 RDW 15.3 % (13.2-15.2) H 10/05/17 05:18 Plt Count 122 K/mm3 (140-440) L 10/05/17 05:18 Lymph % (Auto) 36.3 % (13.4-35.0) H 10/05/17 05:18 [place] % (Auto) 6.6 % (0.0-7.3) 10/05/17 05:18 Eos % (Auto) 0.8 % (0.0-4.3) 10/05/17 05:18 Baso % (Auto) 1.2 % (0.0-1.8) 10/05/17 05:18 Lymph # 2.6 K/mm3 (1.2-5.4) 10/05/17 05:18 [place] # 0.5 K/mm3 (0.0-0.8) 10/05/17 05:18 Eos # 0.1 K/mm3 (0.0-0.4) 10/05/17 05:18 Baso # 0.1 K/mm3 (0.0-0.1) 10/05/17 05:18 Seg Neutrophils % 55.1 % (40.0-70.0) 10/05/17 05:18 Seg Neutrophils # 3.9 K/mm3 (1.8-7.7) 10/05/17 05:18 PT 13.9 Sec. (12.2-14.9) 10/03/17 Unknown INR 1.02 (0.87-1.13) 10/03/17 Unknown APTT 27.3 Sec. (24.2-36.6) 10/03/17 Unknown Sodium 139 mmol/L (137-145) 10/05/17 05:18 Potassium 4.1 mmol/L (3.6-5.0) 10/05/17 05:18 Chloride 103.1 mmol/L (98-107) 10/05/17 05:18 Carbon Dioxide 21 mmol/L (22-30) L 10/05/17 05:18 Anion Gap 19 mmol/L 10/05/17 05:18 BUN 23 mg/dL (7-17) H 10/05/17 05:18 Creatinine 1.8 mg/dL (0.7-1.2) H 10/05/17 05:18 Estimated GFR 34 ml/min 10/05/17 05:18 BUN/Creatinine Ratio 13 % 10/05/17 05:18 Glucose 196 mg/dL (65-100) H 10/05/17 05:18 POC Glucose 165 (70-105) H 10/05/17 12:00 Calcium 9.2 mg/dL (8.4-10.2) 10/05/17 05:18 Magnesium 1.40 mg/dL (1.7-2.3) L 10/03/17 Unknown Total Bilirubin 0.50 mg/dL (0.1-1.2) 10/03/17 Unknown AST 28 units/L (5-40) 10/03/17 Unknown ALT 18 units/L (7-56) 10/03/17 Unknown Alkaline Phosphatase 250 units/L (35-129) H 10/03/17 Unknown Total Creatine Kinase 68 units/L (30-135) 10/03/17 Unknown CK-MB (CK-2) < 1.0 ng/mL (0.0-4.0) 10/03/17 Unknown CK-MB (CK-2) Rel Index 1.4 (0-4) 10/03/17 Unknown Troponin T 0.021 ng/mL (0.00-0.029) 10/03/17 Unknown Total Protein 7.3 g/dL (6.3-8.2) 10/03/17 Unknown Albumin 3.5 g/dL (3.9-5) L 10/03/17 Unknown Albumin/Globulin Ratio 0.9 % 10/03/17 Unknown Urine Color [place] (Yellow) 10/03/17 21:22 Urine Turbidity Clear (Clear) 10/03/17 21:22 Urine pH 5.0 (5.0-7.0) 10/03/17 21:22 Ur Specific [place] 1.016 (1.003-1.030) 10/03/17 21:22 Urine Protein >500 mg/dL (Negative) 10/03/17 21:22 Urine Glucose (UA) 150 mg/dL (Negative) 10/03/17 21:22 Urine Ketones Neg mg/dL (Negative) 10/03/17 21:22 Urine Blood Neg (Negative) 10/03/17 21:22 Urine Nitrite Neg (Negative) 10/03/17 21:22 Urine Bilirubin Neg (Negative) 10/03/17 21: Urine Urobilinogen < 2.0 mg/dL (<2.0) 10/03/17 21:22 Ur Leukocyte Esterase Mod (Negative) 10/03/17 21:22 Urine WBC (Auto) 65.0 /HPF (0.0-6.0) H 10/03/17 21:22 Urine RBC (Auto) 40.0 /HPF (0.0-6.0) 10/03/17 21:22 U Epithel Cells (Auto) 11.0 /HPF (0-13.0) 10/03/17 21: Urine Bacteria (Auto) 4+ /HPF (Negative) 10/03/17 21: Urine Mucus 3+ /HPF 10/03/17 21:22 Urine Opiates Screen Presumptive negative 10/03/17 21:22 Urine Methadone Screen Presumptive negative 10/03/17 21:22 Ur Barbiturates Screen Presumptive negative 10/03/17 21:22 Ur Phencyclidine Scrn Presumptive negative 10/03/17 21:22 Ur Amphetamines Screen Presumptive negative 10/03/17 21:22 U Benzodiazepines Scrn Presumptive positive 10/03/17 21:22 Urine Cocaine Screen Presumptive negative 10/03/17 21:22 U Marijuana (THC) Screen Presumptive negative 10/03/17 21:22 Drugs of Abuse Note Disclamer 10/03/17 21: Plasma/Serum Alcohol < 0.01 % (0-0.07) 10/03/17 Unknown <INDIGO VARGAS R - Last Filed: 10/06/17 08:10> Assessment and Plan Assessment and plan: I saw and evaluated the patient. I agree with the findings and the plan of care as documented in the Nurse Practitioner's~note, with the following corrections and additions. History Interval history: I saw and evaluated the patient. I agree with the findings and the plan of care as documented in the Nurse Practitioner's~note, with the following corrections and additions. Hospitalist Physical - Constitutional Vitals: Temp Pulse Resp BP Pulse Ox 98.7 F 73 20 190/78 94 10/06/17 07:27 10/06/17 07:48 10/06/17 07:27 10/06/17 07:48 10/06/17 07:27 Results - Labs CBC & Chem 7: 10/05/17 05:18 10/05/17 05:18 Labs: Laboratory Last Values WBC 7.1 K/mm3 (4.5-11.0) 10/05/17 05:18 RBC 3.84 M/mm3 (3.65-5.03) 10/05/17 05:18 Hgb 11.6 gm/dl (10.1-14.3) 10/05/17 05:18 Hct 35.1 % (30.3-42.9) 10/05/17 05:18 MCV 92 fl (79-97) 10/05/17 05:18 MCH 30 pg (28-32) 10/05/17 05:18 MCHC 33 % (30-34) 10/05/17 05:18 RDW 15.3 % (13.2-15.2) H 10/05/17 05:18 Plt Count 122 K/mm3 (140-440) L 10/05/17 05:18 Lymph % (Auto) 36.3 % (13.4-35.0) H 10/05/17 05:18 [place] % (Auto) 6.6 % (0.0-7.3) 10/05/17 05:18 Eos % (Auto) 0.8 % (0.0-4.3) 10/05/17 05:18 Baso % (Auto) 1.2 % (0.0-1.8) 10/05/17 05:18 Lymph # 2.6 K/mm3 (1.2-5.4) 10/05/17 05:18 [place] # 0.5 K/mm3 (0.0-0.8) 10/05/17 05:18 Eos # 0.1 K/mm3 (0.0-0.4) 10/05/17 05:18 Baso # 0.1 K/mm3 (0.0-0.1) 10/05/17 05:18 Seg Neutrophils % 55.1 % (40.0-70.0) 10/05/17 05:18 Seg Neutrophils # 3.9 K/mm3 (1.8-7.7) 10/05/17 05:18 PT 13.9 Sec. (12.2-14.9) 10/03/17 Unknown INR 1.02 (0.87-1.13) 10/03/17 Unknown APTT 27.3 Sec. (24.2-36.6) 10/03/17 Unknown Sodium 139 mmol/L (137-145) 10/05/17 05:18 Potassium 4.1 mmol/L (3.6-5.0) 10/05/17 05:18 Chloride 103.1 mmol/L (98-107) 10/05/17 05:18 Carbon Dioxide 21 mmol/L (22-30) L 10/05/17 05:18 Anion Gap 19 mmol/L 10/05/17 05:18 BUN 23 mg/dL (7-17) H 10/05/17 05:18 Creatinine 1.8 mg/dL (0.7-1.2) H 10/05/17 05:18 Estimated GFR 34 ml/min 10/05/17 05:18 BUN/Creatinine Ratio 13 % 10/05/17 05:18 Glucose 196 mg/dL (65-100) H 10/05/17 05:18 POC Glucose 104 (70-105) 10/06/17 07:35 Calcium 9.2 mg/dL (8.4-10.2) 10/05/17 05:18 Magnesium 1.40 mg/dL (1.7-2.3) L 10/03/17 Unknown Total Bilirubin 0.50 mg/dL (0.1-1.2) 10/03/17 Unknown AST 28 units/L (5-40) 10/03/17 Unknown ALT 18 units/L (7-56) 10/03/17 Unknown Alkaline Phosphatase 250 units/L (35-129) H 10/03/17 Unknown Total Creatine Kinase 68 units/L (30-135) 10/03/17 Unknown CK-MB (CK-2) < 1.0 ng/mL (0.0-4.0) 10/03/17 Unknown CK-MB (CK-2) Rel Index 1.4 (0-4) 10/03/17 Unknown Troponin T 0.021 ng/mL (0.00-0.029) 10/03/17 Unknown Total Protein 7.3 g/dL (6.3-8.2) 10/03/17 Unknown Albumin 3.5 g/dL (3.9-5) L 10/03/17 Unknown Albumin/Globulin Ratio 0.9 % 10/03/17 Unknown Urine Color [place] (Yellow) 10/03/17 21: Urine Turbidity Clear (Clear) 10/03/17 21:22 Urine pH 5.0 (5.0-7.0) 10/03/17 21:22 Ur Specific [place] 1.016 (1.003-1.030) 10/03/17 21: Urine Protein >500 mg/dL (Negative) 10/03/17 21:22 Urine Glucose (UA) 150 mg/dL (Negative) 10/03/17 21: Urine Ketones Neg mg/dL (Negative) 10/03/17 21: Urine Blood Neg (Negative) 10/03/17 21: Urine Nitrite Neg (Negative) 10/03/17 21: Urine Bilirubin Neg (Negative) 10/03/17 21: Urine Urobilinogen < 2.0 mg/dL (<2.0) 10/03/17 21: Ur Leukocyte Esterase Mod (Negative) 10/03/17 21:22 Urine WBC (Auto) 65.0 /HPF (0.0-6.0) H 10/03/17 21: Urine RBC (Auto) 40.0 /HPF (0.0-6.0) 10/03/17 21:22 U Epithel Cells (Auto) 11.0 /HPF (0-13.0) 10/03/17 21:22 Urine Bacteria (Auto) 4+ /HPF (Negative) 10/03/17 21: Urine Mucus 3+ /HPF 10/03/17 21:22 Urine Opiates Screen Presumptive negative 10/03/17 21:22 Urine Methadone Screen Presumptive negative 10/03/17 21:22 Ur Barbiturates Screen Presumptive negative 10/03/17 21:22 Ur Phencyclidine Scrn Presumptive negative 10/03/17 21:22 Ur Amphetamines Screen Presumptive negative 10/03/17 21:22 U Benzodiazepines Scrn Presumptive positive 10/03/17 21:22 Urine Cocaine Screen Presumptive negative 10/03/17 21:22 U Marijuana (THC) Screen Presumptive negative 10/03/17 21:22 Drugs of Abuse Note Disclamer 10/03/17 21: Plasma/Serum Alcohol < 0.01 % (0-0.07) 10/03/17 Unknown
--- NOTE | 2017-10-05 19:33 | Progress Note ---
Assessment and Plan Patient sleeping at this time on room air. No acute respiratory distress. O2 saturation 98%. - Patient Problems (1) Pulmonary infiltrates on CXR Current Visit: Yes Status: Acute Plan to address problem: Patient running very low grade temp. No leukocytosis. (2) Altered mental status Current Visit: Yes Status: Acute Plan to address problem: Management as per primary care. (3) Chronic renal insufficiency Current Visit: Yes Status: Acute Plan to address problem: Management as per primary care and nephrology. (4) Dysphagia Current Visit: Yes Status: Acute Plan to address problem: Aspiration precautions. (5) History of CVA with residual deficit Current Visit: Yes Status: Acute Plan to address problem: Management as per primary care and neurology. (6) Hypertension Current Visit: No Status: Acute Qualifiers: Hypertension type: essential hypertension Qualified Code(s): I10 - Essential (primary) hypertension Plan to address problem: Management as per primary care. (7) Pleural effusion, left Current Visit: No Status: Acute Plan to address problem: Obtaining ultrasound of chest. (8) Parkinson disease Current Visit: No Status: Chronic Plan to address problem: Management as per primary care and neurology. Subjective Date of service: 10/05/17 Interval history: Patient sleeping at this time on room air. No acute respiratory distress. O2 saturation 98%. Objective Vital Signs - 12hr 10/05/17 10/05/17 10/05/17 08:17 10:00 10:15 Temperature 99.0 F Pulse Rate 81 Pulse Rate [ 81 Apical] Respiratory 20 20 Rate Blood Pressure 171/78 O2 Sat by Pulse 95 95 97 Oximetry 10/05/17 10/05/17 10/05/17 10:40 13:58 15:43 Temperature 99.2 F Pulse Rate 81 74 Pulse Rate [ Apical] Respiratory 18 18 Rate Blood Pressure 171/78 127/44 137/56 O2 Sat by Pulse 95 Oximetry Constitutional: no acute distress, asleep Eyes: non-icteric Neck: supple, no lymphadenopathy Ascultation: Bilateral: rhonchi Cardiovascular: regular rate and rhythm Gastrointestinal: normoactive bowel sounds, soft, non-tender Integumentary: normal Extremities: no cyanosis, no edema Neurologic: other (Patient sleeping at this time.) Psychiatric: other (Patient sleeping at this time.) CBC and BMP: 10/05/17 05:18 10/05/17 05:18 ABG, PT/INR, D-dimer: PT/INR, D-dimer PT 13.9 Sec. (12.2-14.9) 10/03/17 Unknown INR 1.02 (0.87-1.13) 10/03/17 Unknown Abnormal lab findings: Abnormal Labs 10/03/17 10/03/17 10/03/17 20:37 21:22 Unknown RDW Plt Count 133 L Lymph % (Auto) 44.8 H Carbon Dioxide BUN Creatinine Glucose POC Glucose 256 H Magnesium Alkaline Phosphatase Albumin Urine WBC (Auto) 65.0 H 10/03/17 10/03/17 10/04/17 Unknown Unknown 05:41 RDW Plt Count Lymph % (Auto) Carbon Dioxide 20 L BUN 21 H Creatinine 1.7 H Glucose 286 H POC Glucose 240 H Magnesium 1.40 L Alkaline Phosphatase 250 H Albumin 3.5 L Urine WBC (Auto) 10/04/17 10/04/17 10/04/17 11:22 15:34 23:29 RDW Plt Count Lymph % (Auto) Carbon Dioxide BUN Creatinine Glucose POC Glucose 194 H 183 H 198 H Magnesium Alkaline Phosphatase Albumin Urine WBC (Auto) 10/05/17 10/05/17 10/05/17 05:18 05:18 10:42 RDW 15.3 H Plt Count 122 L Lymph % (Auto) 36.3 H Carbon Dioxide 21 L BUN 23 H Creatinine 1.8 H Glucose 196 H POC Glucose 130 H Magnesium Alkaline Phosphatase Albumin Urine WBC (Auto) 10/05/17 10/05/17 12:00 16:56 RDW Plt Count Lymph % (Auto) Carbon Dioxide BUN Creatinine Glucose POC Glucose 165 H 182 H Magnesium Alkaline Phosphatase Albumin Urine WBC (Auto) Chest x-ray: report reviewed (Left base atelectasis or infiltrate or pleural effusion.), image reviewed
[2017-10-05] MEDS: DESYREL PO SCH (21:34)
[2017-10-05] MEDS: LEVEMIR SUB-Q SCH (22:26)
[2017-10-06] MEDS: APRESOLINE PO SCH ×4 (07:12→21:55)
[2017-10-06] MEDS: APRESOLINE IV PRN ×3 (07:48→20:38)
[2017-10-06] MEDS: NOVOLOG SUB-Q SCH ×4 (08:02→23:18)
[2017-10-06] MEDS: NEURONTIN PO SCH ×3 (08:22→21:56)
--- NOTE | 2017-10-06 09:45 | Ultrasound Report ---
Ultrasound of the chest: Evaluate for left pleural effusion. Upright posterior imaging of the left chest fails to identify any evidence of significant pleural fluid.
[2017-10-06] MEDS: BABY ASPIRIN PO SCH (09:49)
[2017-10-06] MEDS: PEPCID PO SCH (09:49)
[2017-10-06] MEDS: SINEMET PO SCH ×2 (09:49→21:57)
[2017-10-06] MEDS: SODIUM BICARBONATE PO SCH ×2 (09:49→23:18)
[2017-10-06] MEDS: ROCALTROL PO SCH (09:49)
[2017-10-06] MEDS: ZYLOPRIM PO SCH (09:50)
[2017-10-06] MEDS: ARICEPT PO SCH (09:50)
[2017-10-06] MEDS: COREG PO SCH ×2 (09:55→23:21)
[2017-10-06] MEDS: COZAAR PO SCH (09:55)
[2017-10-06] MEDS: LOVENOX SUB-Q SCH (09:56)
--- NOTE | 2017-10-06 11:54 | Progress Note ---
<JOSÉ MIGUEL MORGAN - Last Filed: 10/06/17 11:43> Assessment and Plan Assessment and plan: Altered mental status Likely due to encephalopathy, Neurology consulted Sepsis. Improving , Cont. IV abx. Follow urine cx and trend lactate levels. Etiology secondary to LLL Pnumonia and UTI UTI Cont abx and f/u cx LLL CAP. Cont. Abx and f/u serial CXR Accel HTN. Cont antihypertensive meds. Cardene drip dc'd Diabetes type 2. Cont. ADA diet, Accuchecks and SSI Coronary artery disease. Hypothyroidism. Cont Synthroid Parkinson's dementia Cont. Sinemet and aricept Thrombocytopenia F/U CBC DVT prophylaxis Lovenox History Interval history: Patient seen and examined with daughter at bedside. Her daughter patient is very confused today. States that she wants to get out of the car. Labs and nursing notes reviewed. Hospitalist Physical - Constitutional Vitals: Temp Pulse Resp BP Pulse Ox 98.7 F 90 20 163/76 94 10/06/17 07:27 10/06/17 10:00 10/06/17 10:00 10/06/17 09:55 10/06/17 10:00 General appearance: Present: no acute distress, well-nourished - EENT Eyes: Present: PERRL, EOM intact ENT: hearing intact, clear oral mucosa - Neck Neck: Present: supple, normal ROM - Respiratory Respiratory effort: normal Respiratory: bilateral: CTA - Cardiovascular Rhythm: regular Heart Sounds: Present: S1 & S2 - Extremities Extremities: no ischemia, No edema - Abdominal General gastrointestinal: soft, non-tender, non-distended - Integumentary Integumentary: Present: clear, warm, dry - Psychiatric Psychiatric: no appropriate mood/affect, depressed - Neurologic Neurologic: CNII-XII intact, moves all extremities - Allied Health Allied health notes reviewed: nursing Results - Labs CBC & Chem 7: 10/05/17 05:18 10/05/17 05:18 Labs: Laboratory Last Values WBC 7.1 K/mm3 (4.5-11.0) 10/05/17 05:18 RBC 3.84 M/mm3 (3.65-5.03) 10/05/17 05:18 Hgb 11.6 gm/dl (10.1-14.3) 02/08/18 05:18 Hct 35.1 % (30.3-42.9) 10/05/17 05:18 MCV 92 fl (79-97) 10/05/17 05:18 MCH 30 pg (28-32) 10/05/17 05:18 MCHC 33 % (30-34) 10/05/17 05:18 RDW 15.3 % (13.2-15.2) H 10/05/17 05:18 Plt Count 122 K/mm3 (140-440) L 10/05/17 05:18 Lymph % (Auto) 36.3 % (13.4-35.0) H 10/05/17 05:18 [place] % (Auto) 6.6 % (0.0-7.3) 10/05/17 05:18 Eos % (Auto) 0.8 % (0.0-4.3) 10/05/17 05:18 Baso % (Auto) 1.2 % (0.0-1.8) 10/05/17 05:18 Lymph # 2.6 K/mm3 (1.2-5.4) 10/05/17 05:18 [place] # 0.5 K/mm3 (0.0-0.8) 10/05/17 05:18 Eos # 0.1 K/mm3 (0.0-0.4) 10/05/17 05:18 Baso # 0.1 K/mm3 (0.0-0.1) 10/05/17 05:18 Seg Neutrophils % 55.1 % (40.0-70.0) 10/05/17 05:18 Seg Neutrophils # 3.9 K/mm3 (1.8-7.7) 10/05/17 05:18 PT 13.9 Sec. (12.2-14.9) 10/03/17 Unknown INR 1.02 (0.87-1.13) 10/03/17 Unknown APTT 27.3 Sec. (24.2-36.6) 10/03/17 Unknown Sodium 139 mmol/L (137-145) 10/05/17 05:18 Potassium 4.1 mmol/L (3.6-5.0) 10/05/17 05:18 Chloride 103.1 mmol/L (98-107) 10/05/17 05:18 Carbon Dioxide 21 mmol/L (22-30) L 10/05/17 05:18 Anion Gap 19 mmol/L 10/05/17 05:18 BUN 23 mg/dL (7-17) H 10/05/17 05:18 Creatinine 1.8 mg/dL (0.7-1.2) H 10/05/17 05:18 Estimated GFR 34 ml/min 10/05/17 05:18 BUN/Creatinine Ratio 13 % 10/05/17 05:18 Glucose 196 mg/dL (65-100) H 10/05/17 05:18 POC Glucose 104 (70-105) 10/06/17 07:35 Calcium 9.2 mg/dL (8.4-10.2) 10/05/17 05:18 Magnesium 1.40 mg/dL (1.7-2.3) L 10/03/17 Unknown Total Bilirubin 0.50 mg/dL (0.1-1.2) 10/03/17 Unknown AST 28 units/L (5-40) 10/03/17 Unknown ALT 18 units/L (7-56) 10/03/17 Unknown Alkaline Phosphatase 250 units/L (35-129) H 10/03/17 Unknown Total Creatine Kinase 68 units/L (30-135) 10/03/17 Unknown CK-MB (CK-2) < 1.0 ng/mL (0.0-4.0) 10/03/17 Unknown CK-MB (CK-2) Rel Index 1.4 (0-4) 10/03/17 Unknown Troponin T 0.021 ng/mL (0.00-0.029) 10/03/17 Unknown Total Protein 7.3 g/dL (6.3-8.2) 10/03/17 Unknown Albumin 3.5 g/dL (3.9-5) L 10/03/17 Unknown Albumin/Globulin Ratio 0.9 % 10/03/17 Unknown Urine Color Prachi (Yellow) 10/03/17 21:22 Urine Turbidity Clear (Clear) 10/03/17 21:22 Urine pH 5.0 (5.0-7.0) 10/03/17 21:22 Ur Specific [place] 1.016 (1.003-1.030) 10/03/17 21:22 Urine Protein >500 mg/dL (Negative) 10/03/17 21:22 Urine Glucose (UA) 150 mg/dL (Negative) 10/03/17 21:22 Urine Ketones Neg mg/dL (Negative) 10/03/17 21:22 Urine Blood Neg (Negative) 10/03/17 21:22 Urine Nitrite Neg (Negative) 10/03/17 21:22 Urine Bilirubin Neg (Negative) 10/03/17 21:22 Urine Urobilinogen < 2.0 mg/dL (<2.0) 10/03/17 21:22 Ur Leukocyte Esterase Mod (Negative) 10/03/17 21:22 Urine WBC (Auto) 65.0 /HPF (0.0-6.0) H 10/03/17 21:22 Urine RBC (Auto) 40.0 /HPF (0.0-6.0) 10/03/17 21:22 U Epithel Cells (Auto) 11.0 /HPF (0-13.0) 10/03/17 21:22 Urine Bacteria (Auto) 4+ /HPF (Negative) 10/03/17 21:22 Urine Mucus 3+ /HPF 10/03/17 21:22 Urine Opiates Screen Presumptive negative 10/03/17 21:22 Urine Methadone Screen Presumptive negative 10/03/17 21:22 Ur Barbiturates Screen Presumptive negative 10/03/17 21:22 Ur Phencyclidine Scrn Presumptive negative 10/03/17 21:22 Ur Amphetamines Screen Presumptive negative 10/03/17 21:22 U Benzodiazepines Scrn Presumptive positive 10/03/17 21:22 Urine Cocaine Screen Presumptive negative 10/03/17 21:22 U Marijuana (THC) Screen Presumptive negative 10/03/17 21:22 Drugs of Abuse Note Disclamer 10/03/17 21:22 Plasma/Serum Alcohol < 0.01 % (0-0.07) 10/03/17 Unknown <INDIGO VARGAS R - Last Filed: 10/07/17 08:52> Assessment and Plan Assessment and plan: I saw and evaluated the patient. I agree with the findings and the plan of care as documented in the Nurse Practitioner's~note, with the following corrections and additions. Hospitalist Physical - Constitutional Vitals: Temp Pulse Resp BP Pulse Ox 100.1 F H 108 H 20 158/88 95 10/07/17 08:25 10/07/17 08:31 10/07/17 08:25 02/10/18 08:25 10/07/17 08:31 Results - Labs CBC & Chem 7: 10/07/17 04:18 10/07/17 04:18 Labs: Laboratory Last Values WBC 5.4 K/mm3 (4.5-11.0) 10/07/17 04:18 RBC 3.97 M/mm3 (3.65-5.03) 10/07/17 04:18 Hgb 11.9 gm/dl (10.1-14.3) 10/07/17 04:18 Hct 35.8 % (30.3-42.9) 10/07/17 04:18 MCV 90 fl (79-97) 10/07/17 04:18 MCH 30 pg (28-32) 10/07/17 04:18 MCHC 33 % (30-34) 10/07/17 04:18 RDW 15.0 % (13.2-15.2) 10/07/17 04:18 Plt Count 110 K/mm3 (140-440) L 10/07/17 04:18 Lymph % (Auto) 37.5 % (13.4-35.0) H 10/07/17 04:18 [place] % (Auto) 7.3 % (0.0-7.3) 10/07/17 04:18 Eos % (Auto) 1.8 % (0.0-4.3) 10/07/17 04:18 Baso % (Auto) 0.6 % (0.0-1.8) 10/07/17 04:18 Lymph # 2.0 K/mm3 (1.2-5.4) 10/07/17 04:18 [place] # 0.4 K/mm3 (0.0-0.8) 10/07/17 04:18 Eos # 0.1 K/mm3 (0.0-0.4) 10/07/17 04:18 Baso # 0.0 K/mm3 (0.0-0.1) 10/07/17 04:18 Seg Neutrophils % 52.8 % (40.0-70.0) 10/07/17 04:18 Seg Neutrophils # 2.8 K/mm3 (1.8-7.7) 10/07/17 04:18 PT 13.9 Sec. (12.2-14.9) 10/03/17 Unknown INR 1.02 (0.87-1.13) 10/03/17 Unknown APTT 27.3 Sec. (24.2-36.6) 10/03/17 Unknown Sodium 138 mmol/L (137-145) 10/07/17 04:18 Potassium 3.9 mmol/L (3.6-5.0) 10/07/17 04:18 Chloride 101.5 mmol/L (98-107) 10/07/17 04:18 Carbon Dioxide 19 mmol/L (22-30) L 10/07/17 04:18 Anion Gap 21 mmol/L 10/07/17 04:18 BUN 20 mg/dL (7-17) H 10/07/17 04:18 Creatinine 1.7 mg/dL (0.7-1.2) H 10/07/17 04:18 Estimated GFR 36 ml/min 10/07/17 04:18 BUN/Creatinine Ratio 12 % 10/07/17 04:18 Glucose 274 mg/dL (65-100) H 10/07/17 04:18 POC Glucose 268 (70-105) H 10/07/17 07:38 Calcium 9.3 mg/dL (8.4-10.2) 10/07/17 04:18 Magnesium 1.40 mg/dL (1.7-2.3) L 10/03/17 Unknown Total Bilirubin 0.50 mg/dL (0.1-1.2) 10/03/17 Unknown AST 28 units/L (5-40) 10/03/17 Unknown ALT 18 units/L (7-56) 10/03/17 Unknown Alkaline Phosphatase 250 units/L (35-129) H 10/03/17 Unknown Total Creatine Kinase 68 units/L (30-135) 10/03/17 Unknown CK-MB (CK-2) < 1.0 ng/mL (0.0-4.0) 10/03/17 Unknown CK-MB (CK-2) Rel Index 1.4 (0-4) 10/03/17 Unknown Troponin T 0.021 ng/mL (0.00-0.029) 10/03/17 Unknown Total Protein 7.3 g/dL (6.3-8.2) 10/03/17 Unknown Albumin 3.5 g/dL (3.9-5) L 10/03/17 Unknown Albumin/Globulin Ratio 0.9 % 10/03/17 Unknown Urine Color Prachi (Yellow) 10/03/17 21: Urine Turbidity Clear (Clear) 10/03/17 21:22 Urine pH 5.0 (5.0-7.0) 10/03/17 21:22 Ur Specific [place] 1.016 (1.003-1.030) 10/03/17 21:22 Urine Protein >500 mg/dL (Negative) 10/03/17 21:22 Urine Glucose (UA) 150 mg/dL (Negative) 10/03/17 21:22 Urine Ketones Neg mg/dL (Negative) 10/03/17 21: Urine Blood Neg (Negative) 10/03/17 21: Urine Nitrite Neg (Negative) 10/03/17 21: Urine Bilirubin Neg (Negative) 10/03/17 21: Urine Urobilinogen < 2.0 mg/dL (<2.0) 10/03/17 21:22 Ur Leukocyte Esterase Mod (Negative) 10/03/17 21:22 Urine WBC (Auto) 65.0 /HPF (0.0-6.0) H 10/03/17 21:22 Urine RBC (Auto) 40.0 /HPF (0.0-6.0) 10/03/17 21:22 U Epithel Cells (Auto) 11.0 /HPF (0-13.0) 10/03/17 21:22 Urine Bacteria (Auto) 4+ /HPF (Negative) 10/03/17 21: Urine Mucus 3+ /HPF 10/03/17 21:22 Urine Opiates Screen Presumptive negative 10/03/17 21:22 Urine Methadone Screen Presumptive negative 10/03/17 21:22 Ur Barbiturates Screen Presumptive negative 10/03/17 21:22 Ur Phencyclidine Scrn Presumptive negative 10/03/17 21:22 Ur Amphetamines Screen Presumptive negative 10/03/17 21:22 U Benzodiazepines Scrn Presumptive positive 10/03/17 21:22 Urine Cocaine Screen Presumptive negative 10/03/17 21:22 U Marijuana (THC) Screen Presumptive negative 10/03/17 21:22 Drugs of Abuse Note Disclamer 10/03/17 21:22 Plasma/Serum Alcohol < 0.01 % (0-0.07) 10/03/17 Unknown
--- NOTE | 2017-10-06 14:24 | Fluoroscopy Report ---
Modified barium swallow: Imaging in the lateral view is performed during speech therapy evaluation of multiple consistencies of opaque material. The patient demonstrated delayed swallowing and mild penetration with thin liquids. No aspiration.
[2017-10-06] MEDS: LEVAQUIN 750MG/150ML 750 MG/150 ML BAG IV SCH (15:37)
[2017-10-06] MEDS: D5/0.45NS 1,000 ML IV SCH (18:11)
--- NOTE | 2017-10-06 19:43 | Progress Note ---
Assessment and Plan Patient awake but confused. Not oriented. On room air. No acute respiratory distress. O2 saturation 96%. - Patient Problems (1) Pulmonary infiltrates on CXR Current Visit: Yes Status: Acute Plan to address problem: Patient running very low grade temp. No leukocytosis. Patient is on I/V Levaquin. (2) Altered mental status Current Visit: Yes Status: Acute Plan to address problem: Management as per primary care. (3) Chronic renal insufficiency Current Visit: Yes Status: Acute Plan to address problem: Management as per primary care and nephrology. (4) Dysphagia Current Visit: Yes Status: Acute Plan to address problem: Aspiration precautions. (5) History of CVA with residual deficit Current Visit: Yes Status: Acute Plan to address problem: Management as per primary care and neurology. (6) Hypertension Current Visit: No Status: Acute Qualifiers: Hypertension type: essential hypertension Qualified Code(s): I10 - Essential (primary) hypertension Plan to address problem: Management as per primary care. (7) Pleural effusion, left Current Visit: No Status: Acute Plan to address problem: Ultrsound of chest reported no significant pleural effusion. (8) Parkinson disease Current Visit: No Status: Chronic Plan to address problem: Management as per primary care and neurology. Subjective Date of service: 10/06/17 Interval history: Patient awake but confused. Not oriented. On room air. No acute respiratory distress. O2 saturation 96%. Objective Vital Signs - 12hr 10/06/17 10/06/17 10/06/17 07:48 09:54 09:55 Temperature Pulse Rate 73 90 Pulse Rate [ Apical] Respiratory 20 Rate Blood Pressure 190/78 163/76 163/76 O2 Sat by Pulse Oximetry 10/06/17 10/06/17 10/06/17 10:00 11:13 14:27 Temperature 99.0 F Pulse Rate 84 Pulse Rate [ 90 Apical] Respiratory 20 22 18 Rate Blood Pressure 188/92 173/71 O2 Sat by Pulse 94 96 Oximetry 10/06/17 14:28 Temperature Pulse Rate 69 Pulse Rate [ Apical] Respiratory Rate Blood Pressure 173/71 O2 Sat by Pulse Oximetry Constitutional: no acute distress, alert, other (confused.) Eyes: non-icteric Neck: supple, no lymphadenopathy Ascultation: Bilateral: rhonchi Cardiovascular: regular rate and rhythm Gastrointestinal: normoactive bowel sounds, soft, non-tender Integumentary: normal Extremities: no cyanosis, no edema Neurologic: other (Patient sleeping at this time.) Psychiatric: other (Patient sleeping at this time.) CBC and BMP: 10/05/17 05:18 10/05/17 05:18 ABG, PT/INR, D-dimer: PT/INR, D-dimer PT 13.9 Sec. (12.2-14.9) 10/03/17 Unknown INR 1.02 (0.87-1.13) 10/03/17 Unknown Abnormal lab findings: Abnormal Labs 10/03/17 10/03/17 10/03/17 20:37 21:22 Unknown RDW Plt Count 133 L Lymph % (Auto) 44.8 H Carbon Dioxide BUN Creatinine Glucose POC Glucose 256 H Magnesium Alkaline Phosphatase Albumin Urine WBC (Auto) 65.0 H 10/03/17 10/03/17 10/04/17 Unknown Unknown 05:41 RDW Plt Count Lymph % (Auto) Carbon Dioxide 20 L BUN 21 H Creatinine 1.7 H Glucose 286 H POC Glucose 240 H Magnesium 1.40 L Alkaline Phosphatase 250 H Albumin 3.5 L Urine WBC (Auto) 10/04/17 10/04/17 10/04/17 11:22 15:34 23:29 RDW Plt Count Lymph % (Auto) Carbon Dioxide BUN Creatinine Glucose POC Glucose 194 H 183 H 198 H Magnesium Alkaline Phosphatase Albumin Urine WBC (Auto) 10/05/17 10/05/17 10/05/17 05:18 05:18 10:42 RDW 15.3 H Plt Count 122 L Lymph % (Auto) 36.3 H Carbon Dioxide 21 L BUN 23 H Creatinine 1.8 H Glucose 196 H POC Glucose 130 H Magnesium Alkaline Phosphatase Albumin Urine WBC (Auto) 10/05/17 10/05/17 10/05/17 12:00 16:56 22:00 RDW Plt Count Lymph % (Auto) Carbon Dioxide BUN Creatinine Glucose POC Glucose 165 H 182 H 204 H Magnesium Alkaline Phosphatase Albumin Urine WBC (Auto) 10/06/17 10/06/17 12:33 16:52 RDW Plt Count Lymph % (Auto) Carbon Dioxide BUN Creatinine Glucose POC Glucose 128 H 122 H Magnesium Alkaline Phosphatase Albumin Urine WBC (Auto) Chest x-ray: report reviewed (Left lower lobe infiltrate or atelectasis.), image reviewed
--- NOTE | 2017-10-06 19:47 | XRay Report ---
FINAL REPORT EXAM: XR CHEST 1V AP HISTORY: pneumonia TECHNIQUE: Single AP chest PRIORS: Comparison is dated October 03, 2017 FINDINGS: NG tube is been removed There is some streaky opacity remaining within the left lower lobe consistent with residual atelectasis or infiltrate. Right lung is unremarkable. Pulmonary vasculature is within normal limits. There is no evidence for pneumothorax Sternotomy wires and surgical clips are noted. IMPRESSION: Left lower lobe infiltrate versus atelectasis similar to the prior exam. Continued followup recommended Interval removal of NG tube
[2017-10-06] MEDS: DESYREL PO SCH (21:56)
[2017-10-06] MEDS: LEVEMIR SUB-Q SCH (23:16)
[2017-10-07 05:03] LABS: Basophils % (Auto) 0.6 % (0.0-1.8); Eosinophils # (Auto) 0.1 K/mm3 (0.0-0.4); Eosinophils % (Auto) 1.8 % (0.0-4.3); Hematocrit 35.8 % (30.3-42.9); Hemoglobin 11.9 gm/dl (10.1-14.3); Lymphocytes % (Auto) 37.5 % (13.4-35.0); Mean Corpuscular HGB Conc 33 % (30-34); Mean Corpuscular Hemoglobin 30 pg (28-32); Mean Corpuscular Volume 90 fl (79-97); Monocytes # (Auto) 0.4 K/mm3 (0.0-0.8); Monocytes % (Auto) 7.3 % (0.0-7.3); Platelet Count 110 K/mm3 (140-440); Red Blood Count 3.97 M/mm3 (3.65-5.03)
[2017-10-07 05:41] LABS: Calcium 9.3 mg/dL (8.4-10.2)
[2017-10-07] MEDS: APRESOLINE IV PRN ×2 (06:17→20:16)
[2017-10-07] MEDS: D5/0.45NS 1,000 ML IV SCH (08:23)
[2017-10-07] MEDS: NOVOLOG SUB-Q SCH ×5 (08:25→22:04)
[2017-10-07] MEDS: APRESOLINE PO SCH ×3 (08:29→22:03)
[2017-10-07] MEDS: NEURONTIN PO SCH ×4 (08:29→22:13)
[2017-10-07] MEDS: LOVENOX SUB-Q SCH (09:26)
[2017-10-07] MEDS: ARICEPT PO SCH (10:05)
[2017-10-07] MEDS: ROCALTROL PO SCH (10:06)
[2017-10-07] MEDS: COREG PO SCH ×2 (10:06→22:05)
[2017-10-07] MEDS: ZYLOPRIM PO SCH (10:06)
[2017-10-07] MEDS: BABY ASPIRIN PO SCH (10:06)
[2017-10-07] MEDS: SINEMET PO SCH ×2 (10:06→22:03)
[2017-10-07] MEDS: PEPCID PO SCH (10:06)
[2017-10-07] MEDS: COZAAR PO SCH (10:06)
[2017-10-07] MEDS: SODIUM BICARBONATE PO SCH ×2 (10:06→22:03)
--- NOTE | 2017-10-07 10:48 | Progress Note ---
Assessment and Plan Assessment and plan: Toxic metabolic encephalopathy. Etiology is multifactorial secondary to sepsis , UTI, left lower lobe pneumonia and underlying Parkinson's dementia. Continue to treat causes and supportive care. Sepsis. Improving , Cont. IV abx. Follow urine cx and trend lactate levels. Etiology secondary to LLL Pnumonia and UTI UTI Cont abx and f/u cx LLL CAP. Cont. Abx and f/u serial CXR Accel HTN. Cont antihypertensive meds. Cardene drip dc'd Diabetes type 2. Cont. ADA diet, Accuchecks and SSI Coronary artery disease. Hypothyroidism. Cont Synthroid Parkinson's dementia Cont. Sinemet and aricept Thrombocytopenia F/U CBC DVT prophylaxis Lovenox History Interval history: No new issues overnight. Patient still appears to be confused. Hospitalist Physical - Constitutional Vitals: Temp Pulse Resp BP Pulse Ox 100.1 F H 108 H 20 158/88 95 10/07/17 08:25 10/07/17 08:31 10/07/17 10:00 10/07/17 08:25 10/07/17 10:00 General appearance: Present: no acute distress, well-nourished - EENT Eyes: Present: PERRL, EOM intact ENT: hearing intact, clear oral mucosa, dentition normal - Neck Neck: Present: supple, normal ROM - Respiratory Respiratory effort: normal Respiratory: bilateral: CTA - Cardiovascular Rhythm: regular Heart Sounds: Present: S1 & S2. Absent: gallop, rub - Extremities Extremities: no ischemia, No edema, Full ROM - Abdominal General gastrointestinal: soft, non-tender, non-distended, normal bowel sounds - Integumentary Integumentary: Present: clear, warm, dry - Neurologic Neurologic: CNII-XII intact, moves all extremities Results - Labs CBC & Chem 7: 10/07/17 04:18 10/07/17 04:18 Labs: Laboratory Last Values WBC 5.4 K/mm3 (4.5-11.0) 10/07/17 04:18 RBC 3.97 M/mm3 (3.65-5.03) 10/07/17 04:18 Hgb 11.9 gm/dl (10.1-14.3) 10/07/17 04:18 Hct 35.8 % (30.3-42.9) 10/07/17 04:18 MCV 90 fl (79-97) 10/07/17 04:18 MCH 30 pg (28-32) 10/07/17 04:18 MCHC 33 % (30-34) 10/07/17 04:18 RDW 15.0 % (13.2-15.2) 10/07/17 04:18 Plt Count 110 K/mm3 (140-440) L 10/07/17 04:18 Lymph % (Auto) 37.5 % (13.4-35.0) H 10/07/17 04:18 [place] % (Auto) 7.3 % (0.0-7.3) 10/07/17 04:18 Eos % (Auto) 1.8 % (0.0-4.3) 10/07/17 04:18 Baso % (Auto) 0.6 % (0.0-1.8) 10/07/17 04:18 Lymph # 2.0 K/mm3 (1.2-5.4) 10/07/17 04:18 [place] # 0.4 K/mm3 (0.0-0.8) 10/07/17 04:18 Eos # 0.1 K/mm3 (0.0-0.4) 10/07/17 04:18 Baso # 0.0 K/mm3 (0.0-0.1) 10/07/17 04:18 Seg Neutrophils % 52.8 % (40.0-70.0) 10/07/17 04:18 Seg Neutrophils # 2.8 K/mm3 (1.8-7.7) 10/07/17 04:18 PT 13.9 Sec. (12.2-14.9) 10/03/17 Unknown INR 1.02 (0.87-1.13) 10/03/17 Unknown APTT 27.3 Sec. (24.2-36.6) 10/03/17 Unknown Sodium 138 mmol/L (137-145) 10/07/17 04:18 Potassium 3.9 mmol/L (3.6-5.0) 10/07/17 04:18 Chloride 101.5 mmol/L (98-107) 10/07/17 04:18 Carbon Dioxide 19 mmol/L (22-30) L 10/07/17 04:18 Anion Gap 21 mmol/L 10/07/17 04:18 BUN 20 mg/dL (7-17) H 10/07/17 04:18 Creatinine 1.7 mg/dL (0.7-1.2) H 10/07/17 04:18 Estimated GFR 36 ml/min 10/07/17 04:18 BUN/Creatinine Ratio 12 % 10/07/17 04:18 Glucose 274 mg/dL (65-100) H 10/07/17 04:18 POC Glucose 268 (70-105) H 10/07/17 07:38 Calcium 9.3 mg/dL (8.4-10.2) 10/07/17 04:18 Magnesium 1.40 mg/dL (1.7-2.3) L 10/03/17 Unknown Total Bilirubin 0.50 mg/dL (0.1-1.2) 10/03/17 Unknown AST 28 units/L (5-40) 10/03/17 Unknown ALT 18 units/L (7-56) 10/03/17 Unknown Alkaline Phosphatase 250 units/L (35-129) H 10/03/17 Unknown Total Creatine Kinase 68 units/L (30-135) 10/03/17 Unknown CK-MB (CK-2) < 1.0 ng/mL (0.0-4.0) 10/03/17 Unknown CK-MB (CK-2) Rel Index 1.4 (0-4) 10/03/17 Unknown Troponin T 0.021 ng/mL (0.00-0.029) 10/03/17 Unknown Total Protein 7.3 g/dL (6.3-8.2) 10/03/17 Unknown Albumin 3.5 g/dL (3.9-5) L 10/03/17 Unknown Albumin/Globulin Ratio 0.9 % 10/03/17 Unknown Urine Color Prachi (Yellow) 10/03/17 21:22 Urine Turbidity Clear (Clear) 10/03/17 21:22 Urine pH 5.0 (5.0-7.0) 10/03/17 21:22 Ur Specific [place] 1.016 (1.003-1.030) 10/03/17 21:22 Urine Protein >500 mg/dL (Negative) 10/03/17 21:22 Urine Glucose (UA) 150 mg/dL (Negative) 10/03/17 21:22 Urine Ketones Neg mg/dL (Negative) 10/03/17 21:22 Urine Blood Neg (Negative) 10/03/17 21:22 Urine Nitrite Neg (Negative) 10/03/17 21:22 Urine Bilirubin Neg (Negative) 10/03/17 21:22 Urine Urobilinogen < 2.0 mg/dL (<2.0) 10/03/17 21:22 Ur Leukocyte Esterase Mod (Negative) 10/03/17 21:22 Urine WBC (Auto) 65.0 /HPF (0.0-6.0) H 10/03/17 21:22 Urine RBC (Auto) 40.0 /HPF (0.0-6.0) 10/03/17 21:22 U Epithel Cells (Auto) 11.0 /HPF (0-13.0) 10/03/17 21:22 Urine Bacteria (Auto) 4+ /HPF (Negative) 10/03/17 21:22 Urine Mucus 3+ /HPF 10/03/17 21:22 Urine Opiates Screen Presumptive negative 10/03/17 21:22 Urine Methadone Screen Presumptive negative 10/03/17 21:22 Ur Barbiturates Screen Presumptive negative 10/03/17 21:22 Ur Phencyclidine Scrn Presumptive negative 10/03/17 21:22 Ur Amphetamines Screen Presumptive negative 10/03/17 21:22 U Benzodiazepines Scrn Presumptive positive 10/03/17 21:22 Urine Cocaine Screen Presumptive negative 10/03/17 21:22 U Marijuana (THC) Screen Presumptive negative 10/03/17 21:22 Drugs of Abuse Note Disclamer 10/03/17 21:22 Plasma/Serum Alcohol < 0.01 % (0-0.07) 10/03/17 Unknown
--- NOTE | 2017-10-07 14:12 | Progress Note ---
Assessment and Plan Patient awake but confused. Not oriented. On room air. No acute respiratory distress. O2 saturation 96%.Running low grade temp. - Patient Problems (1) Pulmonary infiltrates on CXR Current Visit: Yes Status: Acute Plan to address problem: Patient running very low grade temp. No leukocytosis. Patient is on I/V Levaquin. (2) Altered mental status Current Visit: Yes Status: Acute Plan to address problem: Management as per primary care. (3) Chronic renal insufficiency Current Visit: Yes Status: Acute Plan to address problem: Management as per primary care and nephrology. (4) Dysphagia Current Visit: Yes Status: Acute Plan to address problem: Aspiration precautions. (5) History of CVA with residual deficit Current Visit: Yes Status: Acute Plan to address problem: Management as per primary care and neurology. (6) Hypertension Current Visit: No Status: Acute Qualifiers: Hypertension type: essential hypertension Qualified Code(s): I10 - Essential (primary) hypertension Plan to address problem: Management as per primary care. (7) Pleural effusion, left Current Visit: No Status: Acute Plan to address problem: Ultrsound of chest reported no significant pleural effusion. (8) Parkinson disease Current Visit: No Status: Chronic Plan to address problem: Management as per primary care and neurology. Subjective Date of service: 10/07/17 Interval history: Patient awake but confused. Not oriented. On room air. No acute respiratory distress. O2 saturation 96%.Running low grade temp. Objective Vital Signs - 12hr 10/07/17 10/07/17 10/07/17 04:08 04:12 06:17 Temperature 99.8 F H Pulse Rate 99 H 94 H Respiratory 22 Rate Blood Pressure 212/101 206/84 Blood Pressure [Left] O2 Sat by Pulse 98 Oximetry 10/07/17 10/07/17 10/07/17 08:14 08:25 08:31 Temperature 99.1 F 100.1 F H Pulse Rate 104 H 108 H Respiratory 20 20 Rate Blood Pressure 158/88 Blood Pressure 167/80 [Left] O2 Sat by Pulse 98 95 Oximetry 10/07/17 10:00 Temperature Pulse Rate Respiratory 20 Rate Blood Pressure Blood Pressure [Left] O2 Sat by Pulse 95 Oximetry Constitutional: no acute distress, alert, other (confused.) Eyes: non-icteric Neck: supple, no lymphadenopathy Ascultation: Bilateral: rhonchi Cardiovascular: regular rate and rhythm Gastrointestinal: normoactive bowel sounds, soft, non-tender Integumentary: normal Extremities: no cyanosis, no edema Neurologic: other (Patient sleeping at this time.) Psychiatric: other (Patient sleeping at this time.) CBC and BMP: 10/07/17 04:18 10/07/17 04:18 ABG, PT/INR, D-dimer: PT/INR, D-dimer PT 13.9 Sec. (12.2-14.9) 10/03/17 Unknown INR 1.02 (0.87-1.13) 10/03/17 Unknown Abnormal lab findings: Abnormal Labs 10/03/17 10/03/17 10/03/17 20:37 21:22 Unknown RDW Plt Count 133 L Lymph % (Auto) 44.8 H Carbon Dioxide BUN Creatinine Glucose POC Glucose 256 H Magnesium Alkaline Phosphatase Albumin Urine WBC (Auto) 65.0 H 10/03/17 10/03/17 10/04/17 Unknown Unknown 05:41 RDW Plt Count Lymph % (Auto) Carbon Dioxide 20 L BUN 21 H Creatinine 1.7 H Glucose 286 H POC Glucose 240 H Magnesium 1.40 L Alkaline Phosphatase 250 H Albumin 3.5 L Urine WBC (Auto) 10/04/17 10/04/17 10/04/17 11:22 15:34 23:29 RDW Plt Count Lymph % (Auto) Carbon Dioxide BUN Creatinine Glucose POC Glucose 194 H 183 H 198 H Magnesium Alkaline Phosphatase Albumin Urine WBC (Auto) 10/05/17 10/05/17 10/05/17 05:18 05:18 10:42 RDW 15.3 H Plt Count 122 L Lymph % (Auto) 36.3 H Carbon Dioxide 21 L BUN 23 H Creatinine 1.8 H Glucose 196 H POC Glucose 130 H Magnesium Alkaline Phosphatase Albumin Urine WBC (Auto) 10/05/17 10/05/17 10/05/17 12:00 16:56 22:00 RDW Plt Count Lymph % (Auto) Carbon Dioxide BUN Creatinine Glucose POC Glucose 165 H 182 H 204 H Magnesium Alkaline Phosphatase Albumin Urine WBC (Auto) 10/06/17 10/06/17 10/06/17 12:33 16:52 21:56 RDW Plt Count Lymph % (Auto) Carbon Dioxide BUN Creatinine Glucose POC Glucose 128 H 122 H 190 H Magnesium Alkaline Phosphatase Albumin Urine WBC (Auto) 10/07/17 10/07/17 10/07/17 04:18 04:18 05:55 RDW Plt Count 110 L Lymph % (Auto) 37.5 H Carbon Dioxide 19 L BUN 20 H Creatinine 1.7 H Glucose 274 H POC Glucose 246 H Magnesium Alkaline Phosphatase Albumin Urine WBC (Auto) 10/07/17 10/07/17 07:38 11:46 RDW Plt Count Lymph % (Auto) Carbon Dioxide BUN Creatinine Glucose POC Glucose 268 H 232 H Magnesium Alkaline Phosphatase Albumin Urine WBC (Auto)
[2017-10-07] MEDS: LEVEMIR SUB-Q SCH (22:05)
[2017-10-07] MEDS: DESYREL PO SCH (22:05)
[2017-10-08 04:07] LABS: Basophils % (Auto) 0.4 % (0.0-1.8); Eosinophils # (Auto) 0.1 K/mm3 (0.0-0.4); Eosinophils % (Auto) 1.7 % (0.0-4.3); Hematocrit 36.5 % (30.3-42.9); Lymphocytes # (Auto) 2.7 K/mm3 (1.2-5.4); Lymphocytes % (Auto) 43.1 % (13.4-35.0); Mean Corpuscular HGB Conc 33 % (30-34); Mean Corpuscular Hemoglobin 30 pg (28-32); Mean Corpuscular Volume 91 fl (79-97); Monocytes # (Auto) 0.6 K/mm3 (0.0-0.8); Monocytes % (Auto) 9.3 % (0.0-7.3); Platelet Count 115 K/mm3 (140-440); Red Blood Count 4.03 M/mm3 (3.65-5.03); Red Cell Distribution Width 14.8 % (13.2-15.2)
[2017-10-08 04:32] LABS: Calcium 8.9 mg/dL (8.4-10.2)
[2017-10-08] MEDS: APRESOLINE IV PRN ×3 (05:53→21:33)
[2017-10-08] MEDS: D5/0.45NS 1,000 ML IV SCH ×2 (06:32→21:34)
[2017-10-08] MEDS: NOVOLOG SUB-Q SCH ×4 (08:44→22:48)
[2017-10-08] MEDS: APRESOLINE PO SCH ×3 (08:47→21:59)
[2017-10-08] MEDS: NEURONTIN PO SCH ×3 (08:47→21:59)
[2017-10-08] MEDS: LOVENOX SUB-Q SCH (09:24)
[2017-10-08] MEDS: ARICEPT PO SCH (10:35)
[2017-10-08] MEDS: COREG PO SCH ×2 (10:35→22:00)
[2017-10-08] MEDS: BABY ASPIRIN PO SCH (10:35)
[2017-10-08] MEDS: COZAAR PO SCH (10:36)
[2017-10-08] MEDS: SODIUM BICARBONATE PO SCH ×2 (10:37→22:00)
[2017-10-08] MEDS: SINEMET PO SCH ×2 (10:37→22:00)
[2017-10-08] MEDS: ROCALTROL PO SCH (10:37)
[2017-10-08] MEDS: ZYLOPRIM PO SCH (10:37)
[2017-10-08] MEDS: PEPCID PO SCH (10:37)
--- NOTE | 2017-10-08 10:52 | Progress Note ---
Assessment and Plan Assessment and plan: Toxic metabolic encephalopathy. Etiology is multifactorial secondary to sepsis , UTI, left lower lobe pneumonia and underlying Parkinson's dementia. Continue to treat causes and supportive care. Sepsis. Improving , Cont. IV abx. Follow urine cx and trend lactate levels. Etiology secondary to LLL Pnum[place] and UTI UTI Cont abx and f/u cx LLL CAP. Cont. Abx and f/u serial CXR JOSE ALFREDO on CKD Patient appears to be a baseline with creatinine. Continue to monitor BMP. Accel HTN. Cont antihypertensive meds. Cardene drip dc'd Diabetes type 2. Cont. ADA diet, Accuchecks and SSI Coronary artery disease. Hypothyroidism. Cont Synthroid Parkinson's dementia Cont. Sinemet and aricept Thrombocytopenia F/U CBC DVT prophylaxis Lovenox History Interval history: Patient complains of nausea this morning but no vomiting. Hospitalist Physical - Constitutional Vitals: Temp Pulse Resp BP Pulse Ox 97.8 F 91 H 18 135/102 94 10/08/17 08:23 10/08/17 10:35 10/08/17 08:23 10/08/17 10:35 10/08/17 09:37 General appearance: Present: no acute distress, well-nourished - EENT Eyes: Present: PERRL, EOM intact ENT: hearing intact, clear oral mucosa, dentition normal - Neck Neck: Present: supple, normal ROM - Respiratory Respiratory effort: normal Respiratory: bilateral: CTA - Cardiovascular Rhythm: regular Heart Sounds: Present: S1 & S2. Absent: gallop, rub - Extremities Extremities: no ischemia, No edema, Full ROM - Abdominal General gastrointestinal: soft, non-tender, non-distended, normal bowel sounds - Integumentary Integumentary: Present: clear, warm, dry - Neurologic Neurologic: CNII-XII intact, moves all extremities Results - Labs CBC & Chem 7: 10/08/17 03:33 10/08/17 03:33 Labs: Laboratory Last Values WBC 6.4 K/mm3 (4.5-11.0) 10/08/17 03:33 RBC 4.03 M/mm3 (3.65-5.03) 10/08/17 03:33 Hgb 12.0 gm/dl (10.1-14.3) 10/08/17 03:33 Hct 36.5 % (30.3-42.9) 10/08/17 03:33 MCV 91 fl (79-97) 10/08/17 03:33 MCH 30 pg (28-32) 10/08/17 03:33 MCHC 33 % (30-34) 10/08/17 03:33 RDW 14.8 % (13.2-15.2) 10/08/17 03:33 Plt Count 115 K/mm3 (140-440) L 10/08/17 03:33 Lymph % (Auto) 43.1 % (13.4-35.0) H 10/08/17 03:33 [place] % (Auto) 9.3 % (0.0-7.3) H 10/08/17 03:33 Eos % (Auto) 1.7 % (0.0-4.3) 10/08/17 03:33 Baso % (Auto) 0.4 % (0.0-1.8) 10/08/17 03:33 Lymph # 2.7 K/mm3 (1.2-5.4) 10/08/17 03:33 [place] # 0.6 K/mm3 (0.0-0.8) 10/08/17 03:33 Eos # 0.1 K/mm3 (0.0-0.4) 10/08/17 03:33 Baso # 0.0 K/mm3 (0.0-0.1) 10/08/17 03:33 Seg Neutrophils % 45.5 % (40.0-70.0) 10/08/17 03:33 Seg Neutrophils # 2.9 K/mm3 (1.8-7.7) 10/08/17 03:33 PT 13.9 Sec. (12.2-14.9) 10/03/17 Unknown INR 1.02 (0.87-1.13) 10/03/17 Unknown APTT 27.3 Sec. (24.2-36.6) 10/03/17 Unknown Sodium 136 mmol/L (137-145) L 10/08/17 03:33 Potassium 3.7 mmol/L (3.6-5.0) 10/08/17 03:33 Chloride 100.1 mmol/L (98-107) 10/08/17 03:33 Carbon Dioxide 21 mmol/L (22-30) L 10/08/17 03:33 Anion Gap 19 mmol/L 10/08/17 03:33 BUN 17 mg/dL (7-17) 10/08/17 03:33 Creatinine 1.5 mg/dL (0.7-1.2) H 10/08/17 03:33 Estimated GFR 42 ml/min 10/08/17 03:33 BUN/Creatinine Ratio 11 % 10/08/17 03:33 Glucose 231 mg/dL (65-100) H 10/08/17 03:33 POC Glucose 252 (70-105) H 10/08/17 09:39 Calcium 8.9 mg/dL (8.4-10.2) 10/08/17 03:33 Magnesium 1.40 mg/dL (1.7-2.3) L 10/03/17 Unknown Total Bilirubin 0.50 mg/dL (0.1-1.2) 10/03/17 Unknown AST 28 units/L (5-40) 10/03/17 Unknown ALT 18 units/L (7-56) 10/03/17 Unknown Alkaline Phosphatase 250 units/L (35-129) H 10/03/17 Unknown Total Creatine Kinase 68 units/L (30-135) 10/03/17 Unknown CK-MB (CK-2) < 1.0 ng/mL (0.0-4.0) 10/03/17 Unknown CK-MB (CK-2) Rel Index 1.4 (0-4) 10/03/17 Unknown Troponin T 0.021 ng/mL (0.00-0.029) 10/03/17 Unknown Total Protein 7.3 g/dL (6.3-8.2) 10/03/17 Unknown Albumin 3.5 g/dL (3.9-5) L 10/03/17 Unknown Albumin/Globulin Ratio 0.9 % 10/03/17 Unknown Urine Color [place] (Yellow) 10/03/17 21:22 Urine Turbidity Clear (Clear) 10/03/17 21:22 Urine pH 5.0 (5.0-7.0) 10/03/17 21:22 Ur Specific [place] 1.016 (1.003-1.030) 10/03/17 21:22 Urine Protein >500 mg/dL (Negative) 10/03/17 21:22 Urine Glucose (UA) 150 mg/dL (Negative) 10/03/17 21:22 Urine Ketones Neg mg/dL (Negative) 10/03/17 21:22 Urine Blood Neg (Negative) 10/03/17 21:22 Urine Nitrite Neg (Negative) 10/03/17 21:22 Urine Bilirubin Neg (Negative) 10/03/17 21:22 Urine Urobilinogen < 2.0 mg/dL (<2.0) 10/03/17 21:22 Ur Leukocyte Esterase Mod (Negative) 10/03/17 21:22 Urine WBC (Auto) 65.0 /HPF (0.0-6.0) H 10/03/17 21:22 Urine RBC (Auto) 40.0 /HPF (0.0-6.0) 10/03/17 21:22 U Epithel Cells (Auto) 11.0 /HPF (0-13.0) 10/03/17 21:22 Urine Bacteria (Auto) 4+ /HPF (Negative) 10/03/17 21:22 Urine Mucus 3+ /HPF 10/03/17 21:22 Urine Opiates Screen Presumptive negative 10/03/17 21:22 Urine Methadone Screen Presumptive negative 10/03/17 21:22 Ur Barbiturates Screen Presumptive negative 10/03/17 21:22 Ur Phencyclidine Scrn Presumptive negative 10/03/17 21:22 Ur Amphetamines Screen Presumptive negative 10/03/17 21:22 U Benzodiazepines Scrn Presumptive positive 10/03/17 21:22 Urine Cocaine Screen Presumptive negative 10/03/17 21:22 U Marijuana (THC) Screen Presumptive negative 10/03/17 21:22 Drugs of Abuse Note Disclamer 10/03/17 21:22 Plasma/Serum Alcohol < 0.01 % (0-0.07) 10/03/17 Unknown
[2017-10-08] MEDS: LEVAQUIN 750MG/150ML 750 MG/150 ML BAG IV SCH (15:25)
--- NOTE | 2017-10-08 21:28 | Progress Note ---
Assessment and Plan Patient condition same. awake not well oriented. Resting on room air . O2 saturation 96%.No acute respiratory distress. Still running low grade temp - Patient Problems (1) Pulmonary infiltrates on CXR Current Visit: Yes Status: Acute Plan to address problem: Patient running very low grade temp. No leukocytosis. Patient is on I/V Levaquin. (2) Altered mental status Current Visit: Yes Status: Acute Plan to address problem: Management as per primary care. (3) Chronic renal insufficiency Current Visit: Yes Status: Acute Plan to address problem: Management as per primary care and nephrology. (4) Dysphagia Current Visit: Yes Status: Acute Plan to address problem: Aspiration precautions. (5) History of CVA with residual deficit Current Visit: Yes Status: Acute Plan to address problem: Management as per primary care and neurology. (6) Hypertension Current Visit: No Status: Acute Qualifiers: Hypertension type: essential hypertension Qualified Code(s): I10 - Essential (primary) hypertension Plan to address problem: Management as per primary care. (7) Pleural effusion, left Current Visit: No Status: Acute Plan to address problem: Ultrsound of chest reported no significant pleural effusion. (8) Parkinson disease Current Visit: No Status: Chronic Plan to address problem: Management as per primary care and neurology. Subjective Date of service: 10/08/17 Interval history: Patient condition same. awake not well oriented. Resting on room air . O2 saturation 96%.No acute respiratory distress. Still running low grade temp Objective Vital Signs - 12hr 10/08/17 10/08/17 10/08/17 09:37 10:00 10:35 Temperature Pulse Rate 91 H 91 H Pulse Rate [ 91 H Apical] Respiratory 18 Rate Blood Pressure 135/102 Blood Pressure 135/102 [Left] O2 Sat by Pulse 94 94 Oximetry 10/08/17 10/08/17 10/08/17 12:36 14:07 16:50 Temperature Pulse Rate 94 H 86 Pulse Rate [ Apical] Respiratory Rate Blood Pressure 180/93 180/93 Blood Pressure [Left] O2 Sat by Pulse 98 Oximetry 10/08/17 10/08/17 10/08/17 16:52 17:00 19:04 Temperature 99.4 F 99.9 F H Pulse Rate 92 H 92 H 109 H Pulse Rate [ Apical] Respiratory 18 18 Rate Blood Pressure 167/83 Blood Pressure 174/71 [Left] O2 Sat by Pulse 99 96 Oximetry Constitutional: no acute distress, alert, other (confused.) Eyes: non-icteric Neck: supple, no lymphadenopathy Ascultation: Bilateral: rhonchi Cardiovascular: regular rate and rhythm Gastrointestinal: normoactive bowel sounds, soft, non-tender Integumentary: normal Extremities: no cyanosis, no edema Neurologic: pupils equal and round, other (Patient sleeping at this time.) Psychiatric: other (Patient sleeping at this time.) CBC and BMP: 10/08/17 03:33 10/08/17 03:33 ABG, PT/INR, D-dimer: PT/INR, D-dimer PT 13.9 Sec. (12.2-14.9) 10/03/17 Unknown INR 1.02 (0.87-1.13) 10/03/17 Unknown Abnormal lab findings: Abnormal Labs 10/03/17 10/03/17 10/03/17 20:37 21:22 Unknown RDW Plt Count 133 L Lymph % (Auto) 44.8 H [place] % (Auto) Sodium Carbon Dioxide BUN Creatinine Glucose POC Glucose 256 H Magnesium Alkaline Phosphatase Albumin Urine WBC (Auto) 65.0 H 10/03/17 10/03/17 10/04/17 Unknown Unknown 05:41 RDW Plt Count Lymph % (Auto) [place] % (Auto) Sodium Carbon Dioxide 20 L BUN 21 H Creatinine 1.7 H Glucose 286 H POC Glucose 240 H Magnesium 1.40 L Alkaline Phosphatase 250 H Albumin 3.5 L Urine WBC (Auto) 10/04/17 10/04/17 10/04/17 11:22 15:34 23:29 RDW Plt Count Lymph % (Auto) [place] % (Auto) Sodium Carbon Dioxide BUN Creatinine Glucose POC Glucose 194 H 183 H 198 H Magnesium Alkaline Phosphatase Albumin Urine WBC (Auto) 10/05/17 10/05/17 10/05/17 05:18 05:18 10:42 RDW 15.3 H Plt Count 122 L Lymph % (Auto) 36.3 H [place] % (Auto) Sodium Carbon Dioxide 21 L BUN 23 H Creatinine 1.8 H Glucose 196 H POC Glucose 130 H Magnesium Alkaline Phosphatase Albumin Urine WBC (Auto) 10/05/17 10/05/17 10/05/17 12:00 16:56 22:00 RDW Plt Count Lymph % (Auto) [place] % (Auto) Sodium Carbon Dioxide BUN Creatinine Glucose POC Glucose 165 H 182 H 204 H Magnesium Alkaline Phosphatase Albumin Urine WBC (Auto) 10/06/17 10/06/17 10/06/17 12:33 16:52 21:56 RDW Plt Count Lymph % (Auto) [place] % (Auto) Sodium Carbon Dioxide BUN Creatinine Glucose POC Glucose 128 H 122 H 190 H Magnesium Alkaline Phosphatase Albumin Urine WBC (Auto) 10/07/17 10/07/17 10/07/17 04:18 04:18 05:55 RDW Plt Count 110 L Lymph % (Auto) 37.5 H [place] % (Auto) Sodium Carbon Dioxide 19 L BUN 20 H Creatinine 1.7 H Glucose 274 H POC Glucose 246 H Magnesium Alkaline Phosphatase Albumin Urine WBC (Auto) 10/07/17 10/07/17 10/07/17 07:38 11:46 16:55 RDW Plt Count Lymph % (Auto) [place] % (Auto) Sodium Carbon Dioxide BUN Creatinine Glucose POC Glucose 268 H 232 H 221 H Magnesium Alkaline Phosphatase Albumin Urine WBC (Auto) 10/07/17 10/08/17 10/08/17 21:51 03:33 03:33 RDW Plt Count 115 L Lymph % (Auto) 43.1 H [place] % (Auto) 9.3 H Sodium 136 L Carbon Dioxide 21 L BUN Creatinine 1.5 H Glucose 231 H POC Glucose 219 H Magnesium Alkaline Phosphatase Albumin Urine WBC (Auto) 10/08/17 10/08/17 10/08/17 08:43 09:39 12:02 RDW Plt Count Lymph % (Auto) [place] % (Auto) Sodium Carbon Dioxide BUN Creatinine Glucose POC Glucose 230 H 252 H 203 H Magnesium Alkaline Phosphatase Albumin Urine WBC (Auto) 10/08/17 16:39 RDW Plt Count Lymph % (Auto) [place] % (Auto) Sodium Carbon Dioxide BUN Creatinine Glucose POC Glucose 199 H Magnesium Alkaline Phosphatase Albumin Urine WBC (Auto)
[2017-10-08] MEDS: DESYREL PO SCH (22:00)
[2017-10-08] MEDS: LEVEMIR SUB-Q SCH (22:48)
[2017-10-09 05:40] LABS: Basophils # (Auto) 0.1 K/mm3 (0.0-0.1); Basophils % (Auto) 1.3 % (0.0-1.8); Eosinophils # (Auto) 0.1 K/mm3 (0.0-0.4); Eosinophils % (Auto) 0.8 % (0.0-4.3); Hematocrit 36.4 % (30.3-42.9); Hemoglobin 12.1 gm/dl (10.1-14.3); Lymphocytes # (Auto) 2.5 K/mm3 (1.2-5.4); Lymphocytes % (Auto) 37.5 % (13.4-35.0); Mean Corpuscular HGB Conc 33 % (30-34); Mean Corpuscular Hemoglobin 30 pg (28-32); Mean Corpuscular Volume 90 fl (79-97); Monocytes # (Auto) 0.5 K/mm3 (0.0-0.8); Monocytes % (Auto) 7.6 % (0.0-7.3); Platelet Count 109 K/mm3 (140-440); Red Blood Count 4.03 M/mm3 (3.65-5.03); Red Cell Distribution Width 14.5 % (13.2-15.2)
[2017-10-09 06:05] LABS: Calcium 8.9 mg/dL (8.4-10.2)
[2017-10-09] MEDS: APRESOLINE IV PRN ×3 (06:34→22:32)
--- NOTE | 2017-10-09 07:12 | Progress Note ---
Assessment and Plan Assessment and plan: Toxic metabolic encephalopathy. Etiology is multifactorial secondary to sepsis , UTI, left lower lobe pneumonia and underlying Parkinson's dementia. Continue to treat causes and supportive care. Sepsis. Improving , Cont. IV abx. Follow urine cx and trend lactate levels. Etiology secondary to LLL [place] and UTI UTI Cont abx and f/u cx LLL CAP. Cont. Abx and f/u serial CXR JOSE ALFREDO on CKD Patient appears to be a baseline with creatinine. Continue to monitor BMP. Accel HTN. Cont antihypertensive meds. Cardene drip dc'd Diabetes type 2. Cont. ADA diet, Accuchecks and SSI Coronary artery disease. Hypothyroidism. Cont Synthroid Parkinson's dementia Cont. Sinemet and aricept Thrombocytopenia F/U CBC DVT prophylaxis Lovenox Disposition. pt. will likely need rehab placement. D/W CM and family History Interval history: No new issues overnight Hospitalist Physical - Constitutional Vitals: Temp Pulse Resp BP Pulse Ox 98.5 F 119 H 18 175/70 97 10/09/17 06:23 10/09/17 05:18 10/09/17 06:23 10/09/17 06:34 10/09/17 05:18 General appearance: Present: no acute distress, well-nourished - EENT Eyes: Present: PERRL, EOM intact ENT: hearing intact, clear oral mucosa, dentition normal - Neck Neck: Present: supple, normal ROM - Respiratory Respiratory effort: normal Respiratory: bilateral: CTA - Cardiovascular Rhythm: regular Heart Sounds: Present: S1 & S2. Absent: gallop, rub - Extremities Extremities: no ischemia, No edema, Full ROM - Abdominal General gastrointestinal: soft, non-tender, non-distended, normal bowel sounds - Integumentary Integumentary: Present: clear, warm, dry - Neurologic Neurologic: CNII-XII intact, moves all extremities Results - Labs CBC & Chem 7: 10/09/17 05:26 10/09/17 05:26 Labs: Laboratory Last Values WBC 6.6 K/mm3 (4.5-11.0) 10/09/17 05:26 RBC 4.03 M/mm3 (3.65-5.03) 10/09/17 05:26 Hgb 12.1 gm/dl (10.1-14.3) 10/09/17 05:26 Hct 36.4 % (30.3-42.9) 10/09/17 05:26 MCV 90 fl (79-97) 10/09/17 05:26 MCH 30 pg (28-32) 10/09/17 05:26 MCHC 33 % (30-34) 10/09/17 05:26 RDW 14.5 % (13.2-15.2) 10/09/17 05:26 Plt Count 109 K/mm3 (140-440) L 10/09/17 05:26 Lymph % (Auto) 37.5 % (13.4-35.0) H 10/09/17 05:26 [place] % (Auto) 7.6 % (0.0-7.3) H 10/09/17 05:26 Eos % (Auto) 0.8 % (0.0-4.3) 10/09/17 05:26 Baso % (Auto) 1.3 % (0.0-1.8) 10/09/17 05:26 Lymph # 2.5 K/mm3 (1.2-5.4) 10/09/17 05:26 [place] # 0.5 K/mm3 (0.0-0.8) 10/09/17 05:26 Eos # 0.1 K/mm3 (0.0-0.4) 10/09/17 05:26 Baso # 0.1 K/mm3 (0.0-0.1) 10/09/17 05:26 Seg Neutrophils % 52.8 % (40.0-70.0) 10/09/17 05:26 Seg Neutrophils # 3.5 K/mm3 (1.8-7.7) 10/09/17 05:26 PT 13.9 Sec. (12.2-14.9) 10/03/17 Unknown INR 1.02 (0.87-1.13) 10/03/17 Unknown APTT 27.3 Sec. (24.2-36.6) 10/03/17 Unknown Sodium 134 mmol/L (137-145) L 10/09/17 05:26 Potassium 4.1 mmol/L (3.6-5.0) 10/09/17 05:26 Chloride 96.6 mmol/L (98-107) L 10/09/17 05:26 Carbon Dioxide 20 mmol/L (22-30) L 10/09/17 05:26 Anion Gap 22 mmol/L 10/09/17 05:26 BUN 18 mg/dL (7-17) H 10/09/17 05:26 Creatinine 1.6 mg/dL (0.7-1.2) H 10/09/17 05:26 Estimated GFR 39 ml/min 10/09/17 05:26 BUN/Creatinine Ratio 11 % 10/09/17 05:26 Glucose 214 mg/dL (65-100) H 10/09/17 05:26 POC Glucose 176 (70-105) H 10/08/17 22:07 Calcium 8.9 mg/dL (8.4-10.2) 10/09/17 05:26 Magnesium 1.40 mg/dL (1.7-2.3) L 10/03/17 Unknown Total Bilirubin 0.50 mg/dL (0.1-1.2) 10/03/17 Unknown AST 28 units/L (5-40) 10/03/17 Unknown ALT 18 units/L (7-56) 10/03/17 Unknown Alkaline Phosphatase 250 units/L (35-129) H 10/03/17 Unknown Total Creatine Kinase 68 units/L (30-135) 10/03/17 Unknown CK-MB (CK-2) < 1.0 ng/mL (0.0-4.0) 10/03/17 Unknown CK-MB (CK-2) Rel Index 1.4 (0-4) 10/03/17 Unknown Troponin T 0.021 ng/mL (0.00-0.029) 10/03/17 Unknown Total Protein 7.3 g/dL (6.3-8.2) 10/03/17 Unknown Albumin 3.5 g/dL (3.9-5) L 10/03/17 Unknown Albumin/Globulin Ratio 0.9 % 10/03/17 Unknown Urine Color [place] (Yellow) 10/03/17 21:22 Urine Turbidity Clear (Clear) 10/03/17 21:22 Urine pH 5.0 (5.0-7.0) 10/03/17 21:22 Ur Specific [place] 1.016 (1.003-1.030) 10/03/17 21:22 Urine Protein >500 mg/dL (Negative) 10/03/17 21:22 Urine Glucose (UA) 150 mg/dL (Negative) 10/03/17 21:22 Urine Ketones Neg mg/dL (Negative) 10/03/17 21:22 Urine Blood Neg (Negative) 10/03/17 21:22 Urine Nitrite Neg (Negative) 10/03/17 21:22 Urine Bilirubin Neg (Negative) 10/03/17 21:22 Urine Urobilinogen < 2.0 mg/dL (<2.0) 10/03/17 21:22 Ur Leukocyte Esterase Mod (Negative) 10/03/17 21:22 Urine WBC (Auto) 65.0 /HPF (0.0-6.0) H 10/03/17 21:22 Urine RBC (Auto) 40.0 /HPF (0.0-6.0) 10/03/17 21:22 U Epithel Cells (Auto) 11.0 /HPF (0-13.0) 10/03/17 21:22 Urine Bacteria (Auto) 4+ /HPF (Negative) 10/03/17 21:22 Urine Mucus 3+ /HPF 10/03/17 21:22 Urine Opiates Screen Presumptive negative 10/03/17 21:22 Urine Methadone Screen Presumptive negative 10/03/17 21:22 Ur Barbiturates Screen Presumptive negative 10/03/17 21:22 Ur Phencyclidine Scrn Presumptive negative 10/03/17 21:22 Ur Amphetamines Screen Presumptive negative 10/03/17 21:22 U Benzodiazepines Scrn Presumptive positive 10/03/17 21:22 Urine Cocaine Screen Presumptive negative 10/03/17 21:22 U Marijuana (THC) Screen Presumptive negative 10/03/17 21:22 Drugs of Abuse Note Disclamer 10/03/17 21:22 Plasma/Serum Alcohol < 0.01 % (0-0.07) 10/03/17 Unknown
[2017-10-09] MEDS: NOVOLOG SUB-Q SCH ×4 (10:06→22:57)
[2017-10-09] MEDS: LOVENOX SUB-Q SCH (11:19)
[2017-10-09] MEDS: D5/0.45NS 1,000 ML IV SCH (11:19)
[2017-10-09] MEDS: APRESOLINE PO SCH ×3 (11:51→20:34)
[2017-10-09] MEDS: NEURONTIN PO SCH ×3 (11:51→20:34)
[2017-10-09] MEDS: ARICEPT PO SCH (11:51)
[2017-10-09] MEDS: COREG PO SCH ×2 (11:52→22:33)
[2017-10-09] MEDS: SODIUM BICARBONATE PO SCH ×2 (11:52→22:34)
[2017-10-09] MEDS: ZYLOPRIM PO SCH (11:52)
[2017-10-09] MEDS: COZAAR PO SCH (11:52)
[2017-10-09] MEDS: ROCALTROL PO SCH (11:52)
[2017-10-09] MEDS: PEPCID PO SCH (11:52)
[2017-10-09] MEDS: SINEMET PO SCH ×2 (11:52→22:34)
[2017-10-09] MEDS: BABY ASPIRIN PO SCH (11:52)
--- NOTE | 2017-10-09 14:02 | Progress Note ---
Assessment and Plan Acute Encephalopathy Sepsis Syndrome Hypertensive Urgency UTI Community Acquired Pneumonia (Possibly Aspiration) JOSE ALFREDO Diabetes type II Parkinsons Disease Hypothyroidism Thrombocytopenia - US chest negative for significant pleural effusion - continue empiric CAP AB's with UTI coverage - O2 as needed to keep sats > 90% - Continue ST evaluation (NPO for now) - continue glycemic control with SSI - aspiration precautions - continue GI & VTE prophylaxis - gentle hydration and follow I's & O's + electrolytes re: Azotemia - adjust anti-hypertensives per attending ...improved ...re-evaluate in am & prn Subjective Date of service: 10/09/17 Principal diagnosis: Acute Encephalopathy; LLL Pneumonia (likely aspiration); JOSE ALFREDO; Dysphagia Interval history: Patient is seen today for: Seen and examined at bedside; 24hour events reviewed; nursing and respiratory care staff consulted; no adverse overnight events reported to me; resting peacefully; no emesis or overt aspiration; failed MBS; no new issues otherwise Objective Vital Signs - 12hr 10/09/17 10/09/17 10/09/17 05:18 06:23 06:34 Temperature 98.5 F Pulse Rate 119 H Respiratory 18 18 Rate Blood Pressure 175/70 175/70 O2 Sat by Pulse 97 Oximetry 10/09/17 10/09/17 07:30 11:35 Temperature 99.8 F H 99.4 F Pulse Rate 85 95 H Respiratory 20 20 Rate Blood Pressure 183/75 172/70 O2 Sat by Pulse 96 97 Oximetry Constitutional: no acute distress, other (confused) Eyes: non-icteric ENT: oropharynx moist Neck: supple, no lymphadenopathy, no JVD, other (no goiter) Effort: mildly labored Ascultation: Bilateral: rhonchi Percussion: Bilateral: not dull Cardiovascular: regular rate and rhythm, other (No rubs / murmurs) Gastrointestinal: normoactive bowel sounds, soft, non-tender, non-distended, other (No palpable HSM) Integumentary: normal Extremities: no cyanosis, no edema, pulses normal, no ischemia or petechiae Neurologic: pupils equal and round, unable to assess Psychiatric: other (encephalopathic) CBC and BMP: 10/10/17 05:34 10/10/17 05:34 ABG, PT/INR, D-dimer: PT/INR, D-dimer PT 13.9 Sec. (12.2-14.9) 10/03/17 Unknown INR 1.02 (0.87-1.13) 10/03/17 Unknown Abnormal lab findings: Abnormal Labs 10/03/17 10/03/17 10/03/17 20:37 21:22 Unknown RDW Plt Count 133 L Lymph % (Auto) 44.8 H Garza % (Auto) Sodium Chloride Carbon Dioxide BUN Creatinine Glucose POC Glucose 256 H Magnesium Alkaline Phosphatase Albumin Urine WBC (Auto) 65.0 H 10/03/17 10/03/17 10/04/17 Unknown Unknown 05:41 RDW Plt Count Lymph % (Auto) Garza % (Auto) Sodium Chloride Carbon Dioxide 20 L BUN 21 H Creatinine 1.7 H Glucose 286 H POC Glucose 240 H Magnesium 1.40 L Alkaline Phosphatase 250 H Albumin 3.5 L Urine WBC (Auto) 10/04/17 10/04/17 10/04/17 11:22 15:34 23:29 RDW Plt Count Lymph % (Auto) Garza % (Auto) Sodium Chloride Carbon Dioxide BUN Creatinine Glucose POC Glucose 194 H 183 H 198 H Magnesium Alkaline Phosphatase Albumin Urine WBC (Auto) 10/05/17 10/05/17 10/05/17 05:18 05:18 10:42 RDW 15.3 H Plt Count 122 L Lymph % (Auto) 36.3 H Garza % (Auto) Sodium Chloride Carbon Dioxide 21 L BUN 23 H Creatinine 1.8 H Glucose 196 H POC Glucose 130 H Magnesium Alkaline Phosphatase Albumin Urine WBC (Auto) 10/05/17 10/05/17 10/05/17 12:00 16:56 22:00 RDW Plt Count Lymph % (Auto) Garza % (Auto) Sodium Chloride Carbon Dioxide BUN Creatinine Glucose POC Glucose 165 H 182 H 204 H Magnesium Alkaline Phosphatase Albumin Urine WBC (Auto) 10/06/17 10/06/17 10/06/17 12:33 16:52 21:56 RDW Plt Count Lymph % (Auto) Garza % (Auto) Sodium Chloride Carbon Dioxide BUN Creatinine Glucose POC Glucose 128 H 122 H 190 H Magnesium Alkaline Phosphatase Albumin Urine WBC (Auto) 10/07/17 10/07/17 10/07/17 04:18 04:18 05:55 RDW Plt Count 110 L Lymph % (Auto) 37.5 H Garza % (Auto) Sodium Chloride Carbon Dioxide 19 L BUN 20 H Creatinine 1.7 H Glucose 274 H POC Glucose 246 H Magnesium Alkaline Phosphatase Albumin Urine WBC (Auto) 10/07/17 10/07/17 10/07/17 07:38 11:46 16:55 RDW Plt Count Lymph % (Auto) Garza % (Auto) Sodium Chloride Carbon Dioxide BUN Creatinine Glucose POC Glucose 268 H 232 H 221 H Magnesium Alkaline Phosphatase Albumin Urine WBC (Auto) 10/07/17 10/08/17 10/08/17 21:51 03:33 03:33 RDW Plt Count 115 L Lymph % (Auto) 43.1 H Garza % (Auto) 9.3 H Sodium 136 L Chloride Carbon Dioxide 21 L BUN Creatinine 1.5 H Glucose 231 H POC Glucose 219 H Magnesium Alkaline Phosphatase Albumin Urine WBC (Auto) 10/08/17 10/08/17 10/08/17 08:43 09:39 12:02 RDW Plt Count Lymph % (Auto) Garza % (Auto) Sodium Chloride Carbon Dioxide BUN Creatinine Glucose POC Glucose 230 H 252 H 203 H Magnesium Alkaline Phosphatase Albumin Urine WBC (Auto) 10/08/17 10/08/17 10/09/17 16:39 22:07 05:26 RDW Plt Count 109 L Lymph % (Auto) 37.5 H Garza % (Auto) 7.6 H Sodium Chloride Carbon Dioxide BUN Creatinine Glucose POC Glucose 199 H 176 H Magnesium Alkaline Phosphatase Albumin Urine WBC (Auto) 10/09/17 10/09/17 10/09/17 05:26 07:22 11:39 RDW Plt Count Lymph % (Auto) Garza % (Auto) Sodium 134 L Chloride 96.6 L Carbon Dioxide 20 L BUN 18 H Creatinine 1.6 H Glucose 214 H POC Glucose 215 H 254 H Magnesium Alkaline Phosphatase Albumin Urine WBC (Auto) CT scan - chest: image reviewed (LLL infiltrate / atelectasis) Allied health notes reviewed: nursing
[2017-10-09] MEDS: DESYREL PO SCH (22:33)
[2017-10-09] MEDS: LEVEMIR SUB-Q SCH (22:57)
[2017-10-10] MEDS: D5/0.45NS 1,000 ML IV SCH ×2 (01:18→22:16)
[2017-10-10 06:40] LABS: Basophils % (Auto) 0.2 % (0.0-1.8); Eosinophils % (Auto) 0.2 % (0.0-4.3); Hematocrit 33.5 % (30.3-42.9); Hemoglobin 11.2 gm/dl (10.1-14.3); Lymphocytes # (Auto) 1.7 K/mm3 (1.2-5.4); Lymphocytes % (Auto) 28.8 % (13.4-35.0); Mean Corpuscular HGB Conc 33 % (30-34); Mean Corpuscular Hemoglobin 30 pg (28-32); Mean Corpuscular Volume 90 fl (79-97); Monocytes # (Auto) 0.3 K/mm3 (0.0-0.8); Monocytes % (Auto) 5.6 % (0.0-7.3); Red Blood Count 3.73 M/mm3 (3.65-5.03); Red Cell Distribution Width 14.9 % (13.2-15.2)
[2017-10-10 06:46] LABS: Calcium 8.6 mg/dL (8.4-10.2)
[2017-10-10 06:47] LABS: Platelet Count 94 K/mm3 (140-440)
[2017-10-10] MEDS: NOVOLOG SUB-Q SCH ×4 (10:10→22:40)
[2017-10-10] MEDS: ARICEPT PO SCH (10:11)
[2017-10-10] MEDS: PEPCID PO SCH (10:11)
[2017-10-10] MEDS: ROCALTROL PO SCH (10:11)
[2017-10-10] MEDS: NEURONTIN PO SCH ×3 (10:11→22:15)
[2017-10-10] MEDS: SODIUM BICARBONATE PO SCH ×2 (10:11→22:15)
[2017-10-10] MEDS: ZYLOPRIM PO SCH (10:11)
[2017-10-10] MEDS: BABY ASPIRIN PO SCH (10:11)
[2017-10-10] MEDS: SINEMET PO SCH ×2 (10:12→22:15)
[2017-10-10] MEDS: COREG PO SCH ×2 (10:12→22:16)
[2017-10-10] MEDS: NORVASC PO SCH (10:13)
[2017-10-10] MEDS: COZAAR PO SCH (10:13)
[2017-10-10] MEDS: APRESOLINE PO SCH ×3 (10:13→22:16)
[2017-10-10] MEDS: LOVENOX SUB-Q SCH (11:04)
--- NOTE | 2017-10-10 16:18 | Progress Note ---
Assessment and Plan Assessment and plan: Toxic metabolic encephalopathy. Etiology is multifactorial secondary to sepsis , left lower lobe pneumonia and underlying Parkinson's dementia. Continue to treat causes and supportive care. Sepsis - Resolved UTI -Culture is negative/normal lenny LLL CAP. - We'll stop the IV antibiotics JOSE ALFREDO on CKD Patient appears to be a baseline with creatinine. Continue to monitor BMP. Accel HTN. - Continue home medications and currently controlled Diabetes type 2. Cont. ADA diet, Accuchecks and SSI Coronary artery disease. Hypothyroidism. Cont Synthroid Parkinson's dementia Cont. Sinemet and aricept Thrombocytopenia F/U CBC DVT prophylaxis Lovenox Disposition. patient need SNF placement. History Interval history: Patient was seen and evaluated this morning, patient was confused and was not communicative. Could be her baseline. Hospitalist Physical - Physical exam Narrative exam: Not in cardiopulmonary distress. The patient appeared well nourished and normally developed. Vital signs as documented. Head exam is unremarkable. No scleral icterus . Neck is without jugular venous distension, thyromegaly, or carotid bruits. Lungs are clear to auscultation. Cardiac exam reveals regular rate and Rhythm. First and second heart sounds normal. No murmurs, rubs or gallops. Abdominal exam reveals normal bowel sounds, no masses, no organomegaly and no aortic enlargement. Extremities are nonedematous and both femoral and pedal pulses are normal. CLINICAL DATA ANALYST: Confused. Noncommunicative. - Constitutional Vitals: Temp Pulse Resp BP Pulse Ox 99.4 F 89 18 189/76 96 10/10/17 07:50 10/10/17 10:13 10/10/17 07:50 10/10/17 10:13 10/10/17 07:50 General appearance: Present: no acute distress, well-nourished Results - Labs CBC & Chem 7: 10/11/17 04:33 10/11/17 04:33 Labs: Laboratory Last Values WBC 6.1 K/mm3 (4.5-11.0) 10/10/17 05:34 RBC 3.73 M/mm3 (3.65-5.03) 10/10/17 05:34 Hgb 11.2 gm/dl (10.1-14.3) 10/10/17 05:34 Hct 33.5 % (30.3-42.9) 10/10/17 05:34 MCV 90 fl (79-97) 10/10/17 05:34 MCH 30 pg (28-32) 10/10/17 05:34 MCHC 33 % (30-34) 10/10/17 05:34 RDW 14.9 % (13.2-15.2) 10/10/17 05:34 Plt Count 94 K/mm3 (140-440) L 10/10/17 05:34 Lymph % (Auto) 28.8 % (13.4-35.0) 10/10/17 05:34 [place] % (Auto) 5.6 % (0.0-7.3) 10/10/17 05:34 Eos % (Auto) 0.2 % (0.0-4.3) 10/10/17 05:34 Baso % (Auto) 0.2 % (0.0-1.8) 10/10/17 05:34 Lymph # 1.7 K/mm3 (1.2-5.4) 10/10/17 05:34 [place] # 0.3 K/mm3 (0.0-0.8) 10/10/17 05:34 Eos # 0.0 K/mm3 (0.0-0.4) 10/10/17 05:34 Baso # 0.0 K/mm3 (0.0-0.1) 10/10/17 05:34 Seg Neutrophils % 65.2 % (40.0-70.0) 10/10/17 05:34 Seg Neutrophils # 3.9 K/mm3 (1.8-7.7) 10/10/17 05:34 PT 13.9 Sec. (12.2-14.9) 10/03/17 Unknown INR 1.02 (0.87-1.13) 10/03/17 Unknown APTT 27.3 Sec. (24.2-36.6) 10/03/17 Unknown Sodium 137 mmol/L (137-145) 10/10/17 05:34 Potassium 3.6 mmol/L (3.6-5.0) 10/10/17 05:34 Chloride 100.3 mmol/L (98-107) 10/10/17 05:34 Carbon Dioxide 21 mmol/L (22-30) L 10/10/17 05:34 Anion Gap 19 mmol/L 10/10/17 05:34 BUN 16 mg/dL (7-17) 10/10/17 05:34 Creatinine 1.5 mg/dL (0.7-1.2) H 10/10/17 05:34 Estimated GFR 42 ml/min 10/10/17 05:34 BUN/Creatinine Ratio 11 % 10/10/17 05:34 Glucose 211 mg/dL (65-100) H 10/10/17 05:34 POC Glucose 145 (70-105) H 10/10/17 12:07 Calcium 8.6 mg/dL (8.4-10.2) 10/10/17 05:34 Magnesium 1.40 mg/dL (1.7-2.3) L 10/03/17 Unknown Total Bilirubin 0.50 mg/dL (0.1-1.2) 10/03/17 Unknown AST 28 units/L (5-40) 10/03/17 Unknown ALT 18 units/L (7-56) 10/03/17 Unknown Alkaline Phosphatase 250 units/L (35-129) H 10/03/17 Unknown Total Creatine Kinase 68 units/L (30-135) 10/03/17 Unknown CK-MB (CK-2) < 1.0 ng/mL (0.0-4.0) 10/03/17 Unknown CK-MB (CK-2) Rel Index 1.4 (0-4) 10/03/17 Unknown Troponin T 0.021 ng/mL (0.00-0.029) 10/03/17 Unknown Total Protein 7.3 g/dL (6.3-8.2) 10/03/17 Unknown Albumin 3.5 g/dL (3.9-5) L 10/03/17 Unknown Albumin/Globulin Ratio 0.9 % 10/03/17 Unknown Urine Color [place] (Yellow) 10/03/17 21:22 Urine Turbidity Clear (Clear) 10/03/17 21:22 Urine pH 5.0 (5.0-7.0) 10/03/17 21:22 Ur Specific [place] 1.016 (1.003-1.030) 10/03/17 21:22 Urine Protein >500 mg/dL (Negative) 10/03/17 21:22 Urine Glucose (UA) 150 mg/dL (Negative) 10/03/17 21:22 Urine Ketones Neg mg/dL (Negative) 10/03/17 21:22 Urine Blood Neg (Negative) 10/03/17 21:22 Urine Nitrite Neg (Negative) 10/03/17 21:22 Urine Bilirubin Neg (Negative) 10/03/17 21:22 Urine Urobilinogen < 2.0 mg/dL (<2.0) 10/03/17 21:22 Ur Leukocyte Esterase Mod (Negative) 10/03/17 21:22 Urine WBC (Auto) 65.0 /HPF (0.0-6.0) H 10/03/17 21:22 Urine RBC (Auto) 40.0 /HPF (0.0-6.0) 10/03/17 21:22 U Epithel Cells (Auto) 11.0 /HPF (0-13.0) 10/03/17 21:22 Urine Bacteria (Auto) 4+ /HPF (Negative) 10/03/17 21:22 Urine Mucus 3+ /HPF 10/03/17 21:22 Urine Opiates Screen Presumptive negative 10/03/17 21:22 Urine Methadone Screen Presumptive negative 10/03/17 21:22 Ur Barbiturates Screen Presumptive negative 10/03/17 21:22 Ur Phencyclidine Scrn Presumptive negative 10/03/17 21:22 Ur Amphetamines Screen Presumptive negative 10/03/17 21:22 U Benzodiazepines Scrn Presumptive positive 10/03/17 21:22 Urine Cocaine Screen Presumptive negative 10/03/17 21:22 U Marijuana (THC) Screen Presumptive negative 10/03/17 21:22 Drugs of Abuse Note Disclamer 10/03/17 21:22 Plasma/Serum Alcohol < 0.01 % (0-0.07) 10/03/17 Unknown
[2017-10-10] MEDS: LEVAQUIN 750MG/150ML 750 MG/150 ML BAG IV SCH (16:25)
[2017-10-10] MEDS: DESYREL PO SCH (22:16)
[2017-10-10] MEDS: LEVEMIR SUB-Q SCH (22:32)
[2017-10-11] MEDS: XANAX PO PRN (00:57)
[2017-10-11] MEDS: TYLENOL PO PRN (00:57)
[2017-10-11 05:17] LABS: Basophils % (Auto) 0.3 % (0.0-1.8); Eosinophils # (Auto) 0.1 K/mm3 (0.0-0.4); Eosinophils % (Auto) 1.7 % (0.0-4.3); Hematocrit 29.1 % (30.3-42.9); Hemoglobin 9.8 gm/dl (10.1-14.3); Lymphocytes # (Auto) 2.1 K/mm3 (1.2-5.4); Lymphocytes % (Auto) 49.5 % (13.4-35.0); Mean Corpuscular HGB Conc 34 % (30-34); Mean Corpuscular Hemoglobin 30 pg (28-32); Mean Corpuscular Volume 90 fl (79-97); Monocytes # (Auto) 0.5 K/mm3 (0.0-0.8); Monocytes % (Auto) 10.5 % (0.0-7.3); Red Blood Count 3.24 M/mm3 (3.65-5.03); Red Cell Distribution Width 14.8 % (13.2-15.2)
[2017-10-11 05:23] LABS: Platelet Count 74 K/mm3 (140-440)
[2017-10-11 05:37] LABS: Calcium 7.9 mg/dL (8.4-10.2)
[2017-10-11] MEDS ORDERED: POTASSIUM CHLORIDE FEEDTUBE ONE (07:00)
[2017-10-11] MEDS: NOVOLOG SUB-Q SCH ×2 (09:39→15:37)
--- NOTE | 2017-10-11 10:01 | Vascular Lab Report ---
RIGHT UPPER EXTREMITY VENOUS DUPLEX: REASON FOR EXAM: Pain and swelling of the right upper extremity COMMENTS ON THE RIGHT: All arm veins visualized are freely compressible without evidence of internal echogenicity. The subclavian and internal jugular veins are free of thrombus. Flow is spontaneous and phasic throughout. COMMENTS ON THE LEFT: A limited study of the jugular and subclavian veins shows no evidence of thrombus. IMPRESSION: No evidence of acute or chronic deep venous thrombosis in the right upper extremity.
[2017-10-11] MEDS: ROCALTROL PO SCH (11:29)
[2017-10-11] MEDS: NORVASC PO SCH (11:29)
[2017-10-11] MEDS: BABY ASPIRIN PO SCH (11:30)
[2017-10-11] MEDS: COZAAR PO SCH (11:30)
[2017-10-11] MEDS: ZYLOPRIM PO SCH (11:31)
[2017-10-11] MEDS: PEPCID PO SCH (11:31)
[2017-10-11] MEDS: NEURONTIN PO SCH ×2 (11:31→15:37)
[2017-10-11] MEDS: COREG PO SCH (11:31)
[2017-10-11] MEDS: ARICEPT PO SCH (11:31)
[2017-10-11] MEDS: APRESOLINE PO SCH ×2 (11:36→15:36)
[2017-10-11] MEDS: D5/0.45NS 1,000 ML IV SCH (11:36)
[2017-10-11] MEDS: SODIUM BICARBONATE PO SCH (11:39)
[2017-10-11] MEDS ORDERED: POTASSIUM CHLORIDE FEEDTUBE SCH (12:00)
[2017-10-11] MEDS: SINEMET PO SCH (13:18)
--- NOTE | 2017-10-11 13:22 | Discharge Summary ---
Providers - Providers Date of Admission: 10/03/17 23:56 Attending physician: MUNIRA DE LOS SANTOS MD 10/04/17 04:14 Consult to Physician [CONS] Routine Consulting Provider: EILEEN MORRISON Reason For Exam: cc Place consult to:: Vanessa Notified:: yes Was contact made?: Yes If yes, spoke with:: Dr. Morrison 10/04/17 12:24 Consult to Dietitian/Nutrition [CONS] Routine Physician Instructions: Reason For Exam: Reason for Consult: Write/Manage Tube Feeding 10/04/17 12:50 Speech Therapy Evaluation and Treat [CONS] Routine Reason For Exam: dysphagia/Hx of CVA 10/08/17 07:10 Speech Therapy Evaluation and Treat [CONS] Urgent Reason For Exam: Hx of CVA Primary care physician: LUKAS WAKEFIELD Hospitalization Reason for admission: Sepsis, metabolic encephalopathy Condition: Stable Disposition: DC/[place]-06 HOME UNDER HOME [facility] Time spent for discharge: 31 minutes - Discharge Diagnoses (1) Altered mental status Status: Acute (2) Chronic renal insufficiency Status: Acute (3) Dysphagia Status: Acute (4) History of CVA with residual deficit Status: Acute (5) Hypomagnesemia Status: Acute (6) Pulmonary infiltrates on CXR Status: Acute (7) Urinary tract infection Status: Acute (8) Vomiting Status: Acute Core Measure Documentation - Palliative Care Palliative Care/ Comfort Measures: Not Applicable - Core Measures Any of the following diagnoses?: history only (CVA) Exam - Physical Exam Narrative exam: Not in cardiopulmonary distress. The patient appeared well nourished and normally developed. Vital signs as documented. Head exam is unremarkable. No scleral icterus . Neck is without jugular venous distension, thyromegaly, or carotid bruits. Lungs are clear to auscultation. Cardiac exam reveals regular rate and Rhythm. First and second heart sounds normal. No murmurs, rubs or gallops. Abdominal exam reveals normal bowel sounds, no masses, no organomegaly and no aortic enlargement. Extremities are nonedematous and both femoral and pedal pulses are normal. SALES AND MARKETING EXECUTIVE: Confused. Noncommunicative. - Constitutional Vitals: Temp Pulse Resp BP Pulse Ox 97.3 F L 62 18 142/60 97 10/11/17 08:04 10/11/17 11:29 10/11/17 08:04 10/11/17 11:29 10/11/17 10:00 Plan Activity: advance as tolerated Weight Bearing Status: Non-Weight Bearing Diet: low cholesterol Follow up with: LUKAS WAKEFIELD MD [Primary Care Provider] - 7 Days
[2017-10-11 16:26] VITALS: BP 130/56
== END 2017-10-11 17:53 | disposition home health service (06) | DRG 871 ==
LOC: ED 20:31 → 3A 23:56 → CC1 10-04 04:41 → 2B-ACE 10-04 17:30
PROVIDERS: ADMIT Internal Medicine; ATTEND Internal Medicine
DX: A41.9 Sepsis, unspecified organism (principal); G92 Toxic encephalopathy; J18.1 Lobar pneumonia, unspecified organism; N39.0 Urinary tract infection, site not specified; N17.9 Acute kidney failure, unspecified; J90 Pleural effusion, not elsewhere classified; Z88.0 Allergy status to penicillin; I48.91 Unspecified atrial fibrillation; F03.90 Unspecified dementia, unspecified severity, without behavioral disturbance, psychotic disturbance, mood disturbance, and anxiety; I50.9 Heart failure, unspecified; I13.0 Hypertensive heart and chronic kidney disease with heart failure and stage 1 through stage 4 chronic kidney disease, or unspecified chronic kidney disease; E11.22 Type 2 diabetes mellitus with diabetic chronic kidney disease; N18.9 Chronic kidney disease, unspecified; G20 Parkinson's disease; Z95.1 Presence of aortocoronary bypass graft; Z79.82 Long term (current) use of aspirin; Z79.4 Long term (current) use of insulin; R13.10 Dysphagia, unspecified; E83.42 Hypomagnesemia; Z82.49 Family history of ischemic heart disease and other diseases of the circulatory system; I25.10 Atherosclerotic heart disease of native coronary artery without angina pectoris; E03.9 Hypothyroidism, unspecified; I69.391 Dysphagia following cerebral infarction; D69.6 Thrombocytopenia, unspecified; Z74.01 Bed confinement status; I16.0 Hypertensive urgency
CPT/HCPCS: 36415; 70450; 71045; 71250; 74230; 76604; 80048; 80053; 80307; 80320; 81001; 82550; 82553; 82962; 83735; 84484; 85025; 85610; 85730; 87086; 90732; 93005; 93010; 96365; 96366; 96375; 96376; A9270-GY; G0480; G8996-GN; G8997-GN; J0360; J1650; J1815; J1818; J1956; J2405; J3475; J7050